=== PATIENT | female | born 1965 | race Caucasian/White ===

== ENCOUNTER 2017-11-04 19:02 | Inpatient (IN) ==
[2017-11-04] MEDS ORDERED: ONDANSETRON 4 MG/2 ML VIAL IV ONE (19:31)
[2017-11-04] MEDS ORDERED: 0.9 % SODIUM CHLORIDE 1,000 ML IV ONE ×2 (19:31→21:39)
[2017-11-04] MEDS ORDERED: HYDROmorphone 2 MG/ML VIAL IV PRN (19:31)
[2017-11-04] MEDS ORDERED: CIPROFLOXACIN 400 MG/200 ML BAG IV ONE (19:37)
--- NOTE | 2017-11-04 20:24 | Emergency Department Note ---
Abdominal Pain HPI - General Chief Complaint: Abdominal Pain Stated Complaint: abd. pain left lower Time Seen by Provider: 11/04/17 19:17 Source: patient Mode of arrival: wheelchair Limitations: no limitations - History of Present Illness HPI Narrative: 10-year-old female with belly pain for the last 3-4 days radiating from her umbilicus down to her left lower quadrant. She was seen at the [facility] clinic with a noted she had elevated white blood cells in her lab but they did not put her on antibiotic. No history of diverticulosis or diverticulitis per patient but she does note a low-grade temperature elevation which indeed here is 99.8. Is having nausea a little bit of vomiting and some diarrhea. She denies hematemesis melena her hematochezia. She is on Coumadin for PE in the past - Related Data Home Medications Medication Instructions Recorded Confirmed Folic Acid 2 mg PO DAILY 04/07/15 11/04/17 Ipratropium/Albuterol [Duoneb] 3 ml NEB Q4HP PRN 04/07/15 11/04/17 Omeprazole [Prilosec] 20 mg PO BIDAC 04/07/15 11/04/17 Potassium Chloride [Klor-Con M20] 20 meq PO TID 04/07/15 11/04/17 busPIRone [Buspar] 20 mg PO TID 04/07/15 11/04/17 metFORMIN [Glucophage] 1,000 mg PO BIDAC 04/07/15 11/04/17 Albuterol Sulfate [Ventolin] 2 puff INH Q4HP PRN 08/05/16 11/04/17 Aripiprazole [Abilify] 10 mg PO DAILY 08/05/16 11/04/17 Isosorbide Mononitrate [Isosorbide 60 mg PO DAILY 08/05/16 11/04/17 Mononitrate ER] Spironolactone [Aldactone] 25 mg PO DAILY 08/05/16 11/04/17 HYDROcodone/APAP 10/325MG [Trosper 1 tab PO Q4H PRN 03/06/17 11/04/17 10/325Mg] alendronate 70 mg tablet 70 mg PO QWEEK PRN 10/11/17 11/04/17 clonazepam 0.5 mg disintegrating 0.5 mg PO TID tab 10/11/17 11/04/17 tablet furosemide 40 mg tablet 20 mg PO DAILY tab 10/11/17 11/04/17 gabapentin 300 mg capsule 300 mg PO QID cap 10/11/17 11/04/17 mirtazapine 30 mg tablet 30 mg PO QHS 10/11/17 11/04/17 montelukast 10 mg tablet 10 mg PO QHS 10/11/17 11/04/17 oxcarbazepine 300 mg tablet 600 mg PO BID 10/11/17 11/04/17 oxybutynin chloride ER 10 mg 10 mg PO QDAY 10/11/17 11/04/17 tablet,extended release 24 hr polysaccharide iron complex 150 mg 150 mg PO BID cap 10/11/17 11/04/17 iron capsule sertraline 50 mg tablet 100 mg PO DAILY tab 10/11/17 11/04/17 warfarin 5 mg tablet 12.5 mg PO QDAY tab 10/11/17 11/04/17 Allergies Allergy/AdvReac Type Severity Reaction Status Date / Time iodine Allergy Severe Anaphylaxis Verified 11/04/17 20:07 methocarbamol Allergy Severe Anaphylaxis Verified 11/04/17 20:07 Penicillins Allergy Severe Anaphylaxis Verified 11/04/17 20:07 Amoxicillin Allergy Unknown Unknown Verified 11/04/17 20:07 atropine Allergy Unknown Unknown Verified 11/04/17 20:07 ceftriaxone [From Rocephin] Allergy Unknown Unknown Verified 11/04/17 20:07 lamotrigine Allergy Unknown Unknown Verified 11/04/17 20:07 morphine Allergy Unknown Unknown Verified 11/04/17 20:07 sulfacetamide Allergy Unknown Unknown Verified 11/04/17 20:07 sulfamethoxazole Allergy Unknown Unknown Verified 11/04/17 20:07 [From Bactrim] trimethoprim [From Bactrim] Allergy Unknown Unknown Verified 11/04/17 20:07 vitamin K2 Allergy Anaphylaxis Verified 11/04/17 20:07 menaquinone 7 Allergy Unknown Unknown Uncoded 10/11/17 08:09 vitamin K Allergy Unknown Unknown Uncoded 10/11/17 08:09 tape AdvReac Unknown Unknown Uncoded 10/11/17 08:09 Review of Systems All systems ED: reviewed and negative except as stated. Abdominal Pain PMH - Past Medical History Attestation: Yes: The following information was validated with the patient. Medical history: Reports: cancer (Renal cell carcinoma, melanoma, ovarian), CHF , COPD, DVT, DM, fibromyalgia, hyperlipidemia, kidney stones, migraine, osteoporosis, pulmonary embolus, other (GCA, pancreatitis, peripheral vascular disease) Surgical history ED: Reports: cholecystectomy, hysterectomy (With oophorectomy) , lumpectomy, orthopedic, other (Shoulder, lumbar, foot), other ([id number] amputation for osteomyelitis at left leg, partial nephrectomy) Psychiatric history: Reports: anxiety, bipolar, depression [employer]ER history: Reports: non-contributory Family history: Reports: no significant family history - Social History Smoking status: Former smoker Alcohol use: Reports: None Drug use: Reports: opiates Physical Exam Overweight female no acute distress. Normocephalic atraumatic. Conjunctive are clear sclerae nonicteric. No nasal discharge or congestion. Oropharynx pink and moist. Neck is supple without lymphadenopathy or thyromegaly. Heart is regular rate and rhythm no murmur appreciated. Lungs are clear to auscultation bilaterally without wheezes rales rhonchi or respiratory distress. Abdomen is soft mildly tender especially left lower quadrant but also periumbilical. She does have a small area of bruising inferior to the umbilicus but she is on Coumadin. No pedal edema on the right but she does have a [id number] amputation on the left. +2 radial pulse. Alert oriented able answer questions appropriately. Limitations: no limitations Course Vital Signs Temperature 98.1 F 11/04/17 19:03 Pulse Rate 96 H 11/04/17 19:03 Respiratory Rate 20 11/04/17 19:03 Blood Pressure 123/63 11/04/17 19:03 Pulse Oximetry (%) 92 11/04/17 19:03 Temperature 99.8 F H 11/04/17 19:24 Pulse Rate 87 11/04/17 21:00 Respiratory Rate 20 11/04/17 19:03 Blood Pressure 119/65 11/04/17 20:31 Pulse Oximetry (%) 91 11/04/17 21:00 Abdominal Pain - Lab Data Lab results reviewed: Yes I reviewed the patient's lab results. Result diagrams: 11/04/17 19:50 11/04/17 19:50 Lab Results 11/04/17 11/04/17 11/04/17 Range/Units 19:50 19:50 19:50 WBC 9.3 (4.5-11.0) K/mcL RBC 4.51 (4.00-5.20) M/mcL Hgb 7.3 L (12.0-15.0) g/dL Hct 26.1 L (36.0-48.0) % POC Hct 26.0 L (36.0-48.0) % MCV 57.8 L (80.0-100.0) fL MCH 16.1 L (26.0-34.0) pg MCHC 27.9 L (31.0-36.0) g/dL RDW 24.5 H (11.5-14.5) % Plt Count 239 (140-440) K/mcL MPV 8.6 (7.4-10.4) fL Gran % 65.2 (38.0-78.0) % Lymph % (Auto) 23.2 (15.5-49.0) % [place] % (Auto) 7.5 (1.0-12.0) % Eos % (Auto) 3.7 (0.0-7.0) % Baso % (Auto) 0.4 (0.0-2.0) % Gran # 6.0 (1.8-8.0) K/mcL Lymph # (Auto) 2.1 (1.5-4.8) K/mcL [place] # (Auto) 0.7 (0.1-0.9) K/mcL Eos # (Auto) 0.3 (0.0-0.7) K/mcL Baso # (Auto) 0 (0.0-0.3) K/mcL PT 43.6 H (11.9-14.5) sec INR 4.4 H (0.9-1.1) VBG Lactic Acid (0.5-2.2) mmol/L POC Sodium 138 (133-145) mmol/L Sodium 137 (133-145) mmol/L POC Potassium 3.7 (3.3-5.1) mmol/L Potassium 3.7 (3.3-5.1) mmol/L POC Chloride 96 (96-108) mmol/L Chloride 95 L (96-108) mmol/L Carbon Dioxide 31 H (22-30) mmol/L POC Total CO2 31 H (22-30) mmol/L Anion Gap 11.0 (8-16) POC BUN 8 (6-20) mg/dl BUN 9 (6-20) mg/dl Creatinine 0.7 (0.6-1.1) mg/dl POC Creatinine 0.8 (0.6-1.1) mg/dl GFR Calculation 101 Glucose 84 (70-105) mg/dL POC Glucose 88 (70-105) mg/dL Calcium 8.2 L (8.6-10.4) mg/dl POC WB Ioniz Calcium 1.04 L (1.16-1.32) mmol/L Total Bilirubin 0.2 (0.0-1.0) mg/dL AST 26 (0-37) U/l ALT 28 (0-40) U/l Alkaline Phosphatase 53 (39-117) U/L Total Protein 6.5 (5.9-8.4) gm/dL Albumin 3.2 (3.2-5.2) gm/dL Globulin 3.3 (2.2-3.7) gm/dL Albumin/Globulin Ratio 1.0 (1.0-2.3) Amylase 80 (28-100) U/L Lipase 100 H (7-60) U/L 11/04/17 Range/Units 19:50 WBC (4.5-11.0) K/mcL RBC (4.00-5.20) M/mcL Hgb (12.0-15.0) g/dL Hct (36.0-48.0) % POC Hct (36.0-48.0) % MCV (80.0-100.0) fL MCH (26.0-34.0) pg MCHC (31.0-36.0) g/dL RDW (11.5-14.5) % Plt Count (140-440) K/mcL MPV (7.4-10.4) fL Gran % (38.0-78.0) % Lymph % (Auto) (15.5-49.0) % [place] % (Auto) (1.0-12.0) % Eos % (Auto) (0.0-7.0) % Baso % (Auto) (0.0-2.0) % Gran # (1.8-8.0) K/mcL Lymph # (Auto) (1.5-4.8) K/mcL [place] # (Auto) (0.1-0.9) K/mcL Eos # (Auto) (0.0-0.7) K/mcL Baso # (Auto) (0.0-0.3) K/mcL PT (11.9-14.5) sec INR (0.9-1.1) VBG Lactic Acid 1.8 (0.5-2.2) mmol/L POC Sodium (133-145) mmol/L Sodium (133-145) mmol/L POC Potassium (3.3-5.1) mmol/L Potassium (3.3-5.1) mmol/L POC Chloride (96-108) mmol/L Chloride (96-108) mmol/L Carbon Dioxide (22-30) mmol/L POC Total CO2 (22-30) mmol/L Anion Gap (8-16) POC BUN (6-20) mg/dl BUN (6-20) mg/dl Creatinine (0.6-1.1) mg/dl POC Creatinine (0.6-1.1) mg/dl GFR Calculation Glucose (70-105) mg/dL POC Glucose (70-105) mg/dL Calcium (8.6-10.4) mg/dl POC WB Ioniz Calcium (1.16-1.32) mmol/L Total Bilirubin (0.0-1.0) mg/dL AST (0-37) U/l ALT (0-40) U/l Alkaline Phosphatase (39-117) U/L Total Protein (5.9-8.4) gm/dL Albumin (3.2-5.2) gm/dL Globulin (2.2-3.7) gm/dL Albumin/Globulin Ratio (1.0-2.3) Amylase (28-100) U/L Lipase (7-60) U/L Urinalysis care dipstick shows positive leukocytes negative nitrites specific gravity 1.005 - Radiology Data Radiology results reviewed: Yes I reviewed the patient's radiology results. CT scan of the abdomen and pelvis with contrast shows large hematoma 5 x 7 cm left lower quadrant rectus abdominis but otherwise no acute abnormality Disposition Pt seen by HOTEL REGISTRATION CLERK/PA only: No Clinical Impression: Supratherapeutic INR Rectus sheath hematoma Qualifiers: Encounter type: initial encounter Qualified Code(s): S30.1XXA - Contusion of abdominal wall, initial encounter UTI (urinary tract infection) Qualifiers: Urinary tract infection type: acute cystitis Hematuria presence: without hematuria Qualified Code(s): N30.00 - Acute cystitis without hematuria Pancreatitis Qualifiers: Chronicity: acute Pancreatitis type: unspecified pancreatitis type Acute pancreatitis complication: no infection or necrosis Qualified Code(s): K85.90 - Acute pancreatitis without necrosis or infection, unspecified Anemia Qualifiers: Anemia type: other cause Other causes of anemia: acute posthemorrhagic Qualified Code(s): D62 - Acute posthemorrhagic anemia Summary: After history and exam, treated with Dilaudid Zofran IV fluids working up. Lnczl-kf-[id number] dipstick shows likely UTI so started IV Cipro because of nausea and vomiting Laboratory shows anemia from blood loss and supratherapeutic INR. Transfusion orders for 3 units packed red blood cells as well as vitamin K orally. Also seen is low level elevation in lipase which could be acute mild pancreatitis as she has had in the past versus simply from her nausea and vomiting. Discussed case with Dr. Rachel Pereira who agreed to accept patient in transfer. Disposition: Home, Self-Care Condition: Fair Referrals: Tristen Dupree MD [Primary Care Provider] -
[2017-11-04 21:17] LABS: ALT/SGPT 28 U/l (0-40); Albumin 3.2 gm/dL (3.2-5.2); Alkaline Phosphatase 53 U/L (39-117); Amylase 80 U/L (28-100); Basophils # (Auto) 0 K/mcL (0.0-0.3); Basophils % (Auto) 0.4 % (0.0-2.0); Blood Urea Nitrogen 9 mg/dl (6-20); Eosinophils # (Auto) 0.3 K/mcL (0.0-0.7); Eosinophils % (Auto) 3.7 % (0.0-7.0); Granulocytes % (Auto) 65.2 % (38.0-78.0); Lipase 100 U/L (7-60); Lymphocytes # (Auto) 2.1 K/mcL (1.5-4.8); Lymphocytes % (Auto) 23.2 % (15.5-49.0); Mean Cell Volume 57.8 fL (80.0-100.0); Mean Corpuscular HGB Conc 27.9 g/dL (31.0-36.0); Mean Corpuscular Hemoglobin 16.1 pg (26.0-34.0); Monocytes # (Auto) 0.7 K/mcL (0.1-0.9); Monocytes % (Auto) 7.5 % (1.0-12.0); Platelet Count 239 K/mcL (140-440); RBC 4.51 M/mcL (4.00-5.20); Red Cell Distribution Width 24.5 % (11.5-14.5)
[2017-11-04] MEDS ORDERED: diphenhydrAMINE 50 MG/ML VIAL IV ONE (21:39)
[2017-11-04] MEDS ORDERED: ACETAMINOPHEN 325 MG TABLET PO ONE (21:39)
[2017-11-04] MEDS ORDERED: PHYTONADIONE 5 MG TABLET PO ONE (21:39)
[2017-11-04] MEDS ORDERED: 0.9 % SODIUM CHLORIDE 250 ML IV SCH (21:45)
--- NOTE | 2017-11-04 22:57 | Internal Med History&Physical ---
Medical - H&P: HPI Patient information: Note initiated : 11/04/17 at 10:49 pm Service Date, if different from initiated Date: [] Patient: Karyna Rand 52 y/o F admitted on for abd. pain left lower. Chief Complaint: Abdominal pain History of present illness: Is a 52-year-old female with extensive past medical history including history of upper extremity DVT associated with PICC line and subsequent PE about 2 years ago on chronic warfarin, type 2 diabetes mellitus treated with metformin, COPD, congestive heart failure, chronic pain who presents with left lower quadrant pain. Patient states the onset of pain was 4-5 days ago. Send the left lower abdominal area. All started when she went to get up after she had been coughing quite hard. It is progressively worsened over the last several days. Today she couldn't stand up because it was hurting so badly. She has Zalma 10/ 325 set home, those were not helping with the pain. The pain is constant, worse with some movements. It's unchanged with food. It's associated with nausea, she believes because of the intensity of pain. She has had no epigastric pain or tenderness. She's had no emesis or hematemesis. She has chronic loose stools from IBS, these are unchanged. There is no blood in her stool. She presents to the emergency department, evaluation was notable for CT showing a 5 x 6 cm left rectus sheath hematoma approximating the area of her pain. She also has acute on chronic anemia with hemoglobin dropping from the 10 range to 7.3. She is also on warfarin for her history of DVT/PE and her INR is elevated at 4.4. Subsequent evaluation revealed low-grade fever 99.8 and urinary tract infection. Patient's being hospitalized for reversal of coagulopathy, monitoring of her hemoglobin for any further evidence of bleeding and need for transfusion, and to begin treatment for urinary tract infection. Patient's felt feverish and chilled over the last few days. Highest temperature at home was 100.8. She has dyspnea which is chronic and has worsened recently, though has started to improve after her diuretics were increased. At baseline she does have chronic dyspnea from her COPD. She has chronic hypoxic/hypercapnic respiratory failure, is on 2 L nasal cannula at home and uses a trilogy device at night for respiratory support. She has occasional headache, recently had temporal artery biopsy which ruled out temporal arteritis. She has chronic lower extremity edema in the right leg ( status post above-knee amputation on the left) which is unchanged. The patient also has been complaining of some mild dysuria and pressure feeling following voiding for the last day or so. All systems: reviewed and no additional remarkable complaints except as stated Medical - H&P: PMH Medical history: COPD (chronic obstructive pulmonary disease) (Acute) Hypercarbia (Acute)-uses Trilogy at home Hypoxia (Acute) Fibromyalgia (Acute) Back pain (Acute) Recurrent major depression (Chronic) Pulmonary embolism (Chronic) secondary to UE DVT from PICC Hypercholesteremia (Chronic) History of renal cell carcinoma (Chronic)-s/p partial nephrectomy Tobacco abuse (Chronic) Peripheral vascular disease (Chronic) Peripheral neuropathy (Chronic) Gastroesophageal reflux (Chronic) Diabetes mellitus, type II (Chronic) Anxiety disorder (Chronic) Kidney stones (Acute) Giant cell arteritis (Ruled-out) Breast lump (Chronic) Fracture of femur (Chronic) Arthritis of hip (Chronic) Dislocation of shoulder joint (Chronic) Senile hyperkeratosis (Chronic) Intervertebral disc disorder (Chronic) Otitis externa (Chronic) Impingement syndrome of shoulder region (Chronic) Diverticulitis of colon (Chronic) Basal cell carcinoma of left upper arm (Chronic) Ventral incisional hernia (Chronic) Nuclear sclerotic cataract (Chronic) Breast cancer (Chronic) Closed femur fracture (Chronic) History of GI bleed (Acute) Costochondritis (Acute) Headache (Acute) Left otitis media (Acute) Rotator cuff tear (Acute) Surgical history: History of amputation (Chronic) History of arthroscopic surgery of shoulder (Chronic) History of back surgery (Chronic) History of broken leg (Chronic) History of cholecystectomy (Chronic) History of foot surgery (Chronic) History of lumpectomy (Chronic) History of nephrectomy (Chronic) History of oophorectomy (Chronic) History of partial hysterectomy (Chronic) Pertinent family history: Father Prostate cancer Mother Family history of coronary artery disease Grandmother Malignant tumor of breast Grandmother Malignant tumor of breast Other Diabetes mellitus, type II Renal cancer Social history: Smokes less than 1/2 PPD; does not drink alcohol Medical - H&P: Meds Home Medications Medication Instructions Recorded Confirmed Type Folic Acid 2 mg PO DAILY 04/07/15 11/04/17 History Ipratropium/Albuterol [Duoneb] 3 ml NEB Q4HP PRN 04/07/15 11/04/17 History Omeprazole [Prilosec] 20 mg PO BIDAC 04/07/15 11/04/17 History Potassium Chloride [Klor-Con M20] 20 meq PO TID 04/07/15 11/04/17 History busPIRone [Buspar] 20 mg PO TID 04/07/15 11/04/17 History metFORMIN [Glucophage] 1,000 mg PO BIDAC 04/07/15 11/04/17 History Albuterol Sulfate [Ventolin] 2 puff INH Q4HP PRN 08/05/16 11/04/17 History Aripiprazole [Abilify] 10 mg PO DAILY 08/05/16 11/04/17 History Isosorbide Mononitrate [Isosorbide 60 mg PO DAILY 08/05/16 11/04/17 History Mononitrate ER] Spironolactone [Aldactone] 25 mg PO DAILY 08/05/16 11/04/17 History HYDROcodone/APAP 10/325MG [Zalma 1 tab PO Q4H PRN 03/06/17 11/04/17 History 10/325Mg] alendronate 70 mg tablet 70 mg PO QWEEK PRN 10/11/17 11/04/17 History clonazepam 0.5 mg disintegrating 0.5 mg PO TID tab 10/11/17 11/04/17 History tablet furosemide 40 mg tablet 20 mg PO DAILY tab 10/11/17 11/04/17 History gabapentin 300 mg capsule 300 mg PO QID cap 10/11/17 11/04/17 History mirtazapine 30 mg tablet 30 mg PO QHS 10/11/17 11/04/17 History montelukast 10 mg tablet 10 mg PO QHS 10/11/17 11/04/17 History oxcarbazepine 300 mg tablet 600 mg PO BID 10/11/17 11/04/17 History oxybutynin chloride ER 10 mg 10 mg PO QDAY 10/11/17 11/04/17 History tablet,extended release 24 hr polysaccharide iron complex 150 mg 150 mg PO BID cap 10/11/17 11/04/17 History iron capsule sertraline 50 mg tablet 100 mg PO DAILY tab 10/11/17 11/04/17 History warfarin 5 mg tablet 12.5 mg PO QDAY tab 10/11/17 11/04/17 History Allergies Allergy/AdvReac Type Severity Reaction Status Date / Time iodine Allergy Severe Anaphylaxis Verified 11/04/17 20:07 methocarbamol Allergy Severe Anaphylaxis Verified 11/04/17 20:07 Penicillins Allergy Severe Anaphylaxis Verified 11/04/17 20:07 Amoxicillin Allergy Unknown Unknown Verified 11/04/17 20:07 atropine Allergy Unknown Unknown Verified 11/04/17 20:07 ceftriaxone [From Rocephin] Allergy Unknown Unknown Verified 11/04/17 20:07 lamotrigine Allergy Unknown Unknown Verified 11/04/17 20:07 morphine Allergy Unknown Unknown Verified 11/04/17 20:07 sulfacetamide Allergy Unknown Unknown Verified 11/04/17 20:07 sulfamethoxazole Allergy Unknown Unknown Verified 11/04/17 20:07 [From Bactrim] trimethoprim [From Bactrim] Allergy Unknown Unknown Verified 11/04/17 20:07 vitamin K2 Allergy Anaphylaxis Verified 11/04/17 20:07 menaquinone 7 Allergy Unknown Unknown Uncoded 10/11/17 08:09 vitamin K Allergy Unknown Unknown Uncoded 10/11/17 08:09 tape AdvReac Unknown Unknown Uncoded 10/11/17 08:09 Medical - H&P: Exam - Constitutional Vitals: Temp Pulse Resp BP Pulse Ox 99.8 F H 83 14 122/64 88 L 11/04/17 21:58 11/04/17 22:31 11/04/17 21:46 11/04/17 22:31 11/04/17 22:31 Exam: General: Morbid obesity, uncomfortable, sitting up in a [facility] HEENT: Normocephalic. Pupils are round and equal. Sclera are without icterus, conjunctiva are noninjected. Oropharynx is clear with moist mucous membranes. Neck: Supple, no thyromegaly appreciated. Chest: Few basilar crackles, scattered expiratory wheezes, respirations are unlabored Cardiovascular: Regular rate and rhythm with 1/6 systolic murmur at the upper right sternal border. There is 1+ right lower extremity edema. JVP cannot be assessed. Carotid pulses are 2+ without bruit. Abdomen: Obese, soft. In the left lower quadrant there is moderate tenderness to palpation, it is present with superficial palpation. There is no guarding or rebound. There is faint ecchymoses in the hypogastric region. Active bowel sounds. There is no epigastric tenderness to palpation. Skin: Warm, dry, normal skin turgor. Musculoskeletal: Status post left above-knee amputation. Stump intact without lesions. Otherwise joints in the upper and right lower extremity are with full range of motion. Strength is 5/5. No cyanosis or clubbing. Neuro: Alert, oriented 3, cranial nerves II through XII are grossly intact. Sensations intact to light touch. Patient displays normal mood, normal affect, good insight into her condition. Medical - H&P: Reslt - Labs CBC & Chem 7: 11/04/17 19:50 11/04/17 19:50 Labs: Short CBC 11/04/17 Range/Units 19:50 WBC 9.3 (4.5-11.0) K/mcL Hgb 7.3 L (12.0-15.0) g/dL Hct 26.1 L (36.0-48.0) % Plt Count 239 (140-440) K/mcL BMP 11/04/17 19:50 Sodium 137 Potassium 3.7 Chloride 95 L Carbon Dioxide 31 H BUN 9 Creatinine 0.7 Glucose 84 Calcium 8.2 L Liver Function 11/04/17 Range/Units 19:50 Total Bilirubin 0.2 (0.0-1.0) mg/dL AST 26 (0-37) U/l ALT 28 (0-40) U/l Alkaline Phosphatase 53 (39-117) U/L Albumin 3.2 (3.2-5.2) gm/dL - Imaging and Cardiology CT scan - abdomen Status: image reviewed by me Additional comments: Preliminary report: left rectus sheath hemorrhage, 5 x 6 cm hematoma Medical - H&P: A/P (1) Rectus sheath hematoma Current visit: Yes Status: Acute (2) Supratherapeutic INR Current visit: Yes Status: Acute (3) UTI (urinary tract infection) Current visit: Yes Status: Acute (4) Diabetes mellitus, type II Current visit: Yes Status: Chronic - Narrative A/P Narrative: 52-year-old female with multiple medical problems, on anticoagulation for PE about 2 years ago presents with left lower quadrant pain. Found to have rectus sheath hematoma. Rectus sheath hematoma. This is in the setting of coagulopathy from warfarin therapy with an INR 4.4. Suspect minor trauma lead II bleeding due to coagulopathy. She was coughing quite hard and could've had a minor muscle tear of the abdominal wall. She is not injected insulin or other medications into the abdomen. She was hospitalized at [facility] about 10 days ago, did not have any subcutaneous injections at that time either. Hematoma associated with blood loss anemia, hemoglobin down to 7.3. Plan: Hospitalized in observation FFP to reverse coagulopathy (she has anaphylaxis to vitamin K) Follow INR Trend hemoglobin and hematocrit, consider transfusion if falls below 7 Pain control. Coagulopathy secondary to warfarin and excess anticoagulation. Plan: Reverse with FFP as above. Urinary tract infection. Likely explains her low grade fevers. Plan: Continue with Cipro, follow up cultures Elevated lipase. Lipase is 100. She does not have epigastric pain, she has not had nausea and vomiting, she has not been intolerant of food. There does not appear to be any. Pancreatic inflammatory changes on CT. This is likely a nonspecific finding, low suspicion for pancreatitis. Plan: Monitor COPD with chronic hypoxic/hypercapnic respiratory failure. Uses Trilogy at home. Plan: Continue with DuoNeb's, CPAP or Trilogy at night. Type 2 diabetes mellitus. On metformin at home. Good glucose control by report. Plan: Hold metformin while acutely ill as may need contrast studies. Diabetic diet. Sliding scale insulin when necessary. Prophylaxis: SCDs, home PPI. Pharmacologic prophylaxis is contraindicated due to acute hemorrhage. CODE STATUS: Full code
[2017-11-04] MEDS ORDERED: HYDROcodone/APAP 10/325MG TABLET PO PRN (23:04)
[2017-11-04] MEDS ORDERED: ACETAMINOPHEN 325 MG TABLET PO PRN (23:04)
[2017-11-04] MEDS ORDERED: ONDANSETRON 4 MG/2 ML VIAL IV PRN (23:04)
[2017-11-04] MEDS ORDERED: CIPROFLOXACIN 400 MG/200 ML BAG IV SCH (23:04)
[2017-11-04] MEDS ORDERED: GABAPENTIN 300 MG CAPSULE ONE (23:20)
[2017-11-04] MEDS ORDERED: clonazePAM 1 MG TABLET ONE (23:21)
[2017-11-05] MEDS: 0.9 % SODIUM CHLORIDE 250 ML IV SCH ×2 (00:55→08:40)
[2017-11-05 07:01] LABS: Basophils # (Auto) 0 K/mcL (0.0-0.3); Basophils % (Auto) 0.4 % (0.0-2.0); Eosinophils # (Auto) 0.4 K/mcL (0.0-0.7); Granulocytes % (Auto) 60.1 % (38.0-78.0); Lymphocytes # (Auto) 1.8 K/mcL (1.5-4.8); Mean Cell Volume 58.9 fL (80.0-100.0); Mean Corpuscular HGB Conc 28.2 g/dL (31.0-36.0); Mean Corpuscular Hemoglobin 16.6 pg (26.0-34.0); Monocytes # (Auto) 0.5 K/mcL (0.1-0.9); Monocytes % (Auto) 7.5 % (1.0-12.0); Platelet Count 215 K/mcL (140-440); RBC 4.08 M/mcL (4.00-5.20); Red Cell Distribution Width 23.9 % (11.5-14.5)
[2017-11-05 07:07] LABS: Blood Urea Nitrogen 10 mg/dl (6-20)
[2017-11-05] MEDS: POTASSIUM CHLORIDE 20 MEQ TABLET PO SCH ×3 (07:32→17:14)
[2017-11-05] MEDS: busPIRone 5 MG TABLET PO SCH ×3 (07:33→23:11)
[2017-11-05] MEDS: OMEPRAZOLE 20 MG CAPSULE PO SCH ×2 (07:45→17:14)
[2017-11-05] MEDS: 0.9 % SODIUM CHLORIDE 10 ML SYRINGE IV SCH ×5 (07:46→23:13)
[2017-11-05] MEDS: SPIRONOLACTONE 25 MG TABLET PO SCH (07:57)
[2017-11-05] MEDS: OXYBUTYNIN CHLORIDE 5 MG TAB.XL.24H PO SCH (07:57)
[2017-11-05] MEDS: SERTRALINE 50 MG TABLET PO SCH (07:58)
[2017-11-05] MEDS: ISOSORBIDE MONONITRATE 60 MG TAB.XL.24H PO SCH (07:58)
[2017-11-05] MEDS: clonazePAM 0.5 MG TABLET PO SCH ×3 (07:58→23:14)
[2017-11-05] MEDS: GABAPENTIN 300 MG CAPSULE PO SCH ×4 (07:59→23:12)
[2017-11-05] MEDS: FOLIC ACID 1 MG TABLET PO SCH (07:59)
[2017-11-05] MEDS: FUROSEMIDE 20 MG TABLET PO SCH (07:59)
[2017-11-05] MEDS: HYDROcodone/APAP 10/325MG TABLET PO PRN ×4 (08:07→23:12)
[2017-11-05] MEDS ORDERED: 0.9 % SODIUM CHLORIDE 250 ML IV SCH (08:15)
[2017-11-05] MEDS: IPRATROPIUM/ALBUTEROL 3 ML AMPUL.NEB NEB PRN ×3 (08:25→19:29)
--- NOTE | 2017-11-05 09:14 | Cat Scan Report ---
CLINICAL INFORMATION: Reason for Exam:LLQ pain and bruising , patient is anticoagulated FINDINGS: The patient was imaged without oral or IV contrast from the diaphragm to the symphysis pubis. Sagittal and coronal reformats were created. There are several bands of scar tissue in both lung bases. These were present on a prior abdomen CT done on 02/26/16. No pleural effusion is present. Evaluation of abdominal organs without contrast is limited. There is air within the intrahepatic and extrahepatic bile ducts. Patient has had gallbladder removed. The air in the bile ducts is a chronic finding and may be related to prior papillotomy. The spleen and pancreas are normal in size and homogeneous. There is a defect in Gerota's fascia posterior to the right kidney following a prior tumor resection. The kidney is displaced, partially into the posterior abdominal wall musculature. This is probably due to scarring. The appearance of the kidney is unchanged since 11/09/16. There is no gross recurrent tumor in or adjacent to the right kidney. The left kidney is normal in size shape and contour. The bowel gas pattern is normal. Urinary bladder is decompressed. The uterus and ovaries are been removed. There is an acute intramuscular hematoma in the left rectus abdominis muscle in the mid pelvis. The hematoma measures 3.6 x 7.8 cm. No intrapelvic hematoma, mass or free fluid are present. There are postoperative changes following prior discectomy with interbody and posterior fusion at L4-5. IMPRESSION: Acute intramuscular hematoma in the left rectus abdominis muscle. This may be related to the anticoagulation Dr. Ledesma was called with results Interpreted and Authenticated by: Kuldip Hall 11/05/17
[2017-11-05] MEDS: ARIPIPRAZOLE 20 MG TABLET PO SCH (11:42)
[2017-11-05] MEDS: CIPROFLOXACIN 400 MG/200 ML BAG IV SCH (12:19)
[2017-11-05] MEDS: OXCARBAZEPINE 600 MG PO SCH ×2 (12:33→23:13)
--- NOTE | 2017-11-05 18:15 | Internal Med Progress Note ---
Medical - PN: Subj Patient information: Note initiated : 11/05/17 at 6:13 pm Service Date, if different from initiated Date: [] Patient: Karyna Rand 52 y/o F admitted on 11/04/17 for abd. pain left lower. Chief Complaint: f/u rectus m. 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 Patient states the onset of pain was 4-5 days ago. Send the left lower abdominal area. All started when she went to get up after she had been coughing quite hard. It is progressively worsened over the last several days. Today she couldn't stand up because it was hurting so badly. She has [place] 10/ 325 set home, those were not helping with the pain. The pain is constant, worse with some movements. It's unchanged with food. It's associated with nausea, she believes because of the intensity of pain. She has had no epigastric pain or tenderness. She's had no emesis or hematemesis. She has chronic loose stools from IBS, these are unchanged. There is no blood in her stool. She presents to the emergency department, evaluation was notable for CT showing a 5 x 6 cm left rectus sheath hematoma approximating the area of her pain. She also has acute on chronic anemia with hemoglobin dropping from the 10 range to 7.3. She is also on warfarin for her history of DVT/PE and her INR is elevated at 4.4. Subsequent evaluation revealed low-grade fever 99.8 and urinary tract infection. Patient's being hospitalized for reversal of coagulopathy, monitoring of her hemoglobin for any further evidence of bleeding and need for transfusion, and to begin treatment for urinary tract infection. 11/05-Patient still complaining of abdominal wall pain in the same region. Received 3 units FFP overnight, INR still 2.2. Hemoglobin down to 6.8, though she did receive significant IV fluids in the ED last evening. Has not been transfused 2 units of packed red blood cells, will receive further FFP. Otherwise breathing stable, no cough or sputum production, trace edema remains stable in the right lower extremity. - Constitutional Vitals: Vital Signs Temp Pulse Resp BP Pulse Ox 97.7 F 72 18 112/77 91 11/05/17 15:44 11/05/17 14:47 11/05/17 15:44 11/05/17 15:44 11/05/17 15:44 Period Temp Pulse Resp BP Sys/[place] Pulse Ox Last 24 Hr 96.9 F-99.8 F 72-96 14-24 106-133/51-77 88-94 Intake and Output 11/05/17 11/05/17 11/05/17 05:59 13:59 21:59 Intake Total 3021 / 3021 575 / 575 710 / 710 Output Total 600 / 600 250 / 250 Balance 3021 / 3021 -25 / -25 460 / 460 Weight 232 lb Intake & Output: Intake & Output 11/05/17 11/05/17 11/05/17 05:59 13:59 21:59 Intake Total 3021 / 3021 575 / 575 710 / 710 Output Total 600 / 600 250 / 250 Balance 3021 / 3021 -25 / -25 460 / 460 Weight 232 lb Intake: IV 1583 / 1583 355 / 355 Sodium Chloride 0.9% 1,000 ml @ 1583 / 1583 Wide Open IV .Q0M ONE Rx#: [id number] Sodium Chloride 0.9% 250 ml @ 155 / 155 20 mls/hr IV .[id number] [facility] Rx#: [id number] Oral 490 / 490 220 / 220 360 / 360 Blood Product 948 / 948 350 / 350 Output: Void Amount 600 / 600 250 / 250 Other: Meal Sand[place] Breakfast Dinner Percent of Meal Consumed 100% 95 90 Feeding Ability Independent Independent Assist with Tray Set Up # Voids 1 1 Exam: General: In no acute distress Chest: Clear, no rales Cardiovascular: Distant, regular, trace lower extremity edema in the right Abdomen: Obese, soft, nontender Muscular skeletal: No cyanosis or clubbing. Status post left AKA. Neuro: Alert, oriented, nonfocal Medical - PN: Obj Da - Labs CBC & Chem 7: 11/05/17 05:27 11/05/17 05:27 Labs: Abnormal Lab Results 11/05/17 11/05/17 11/05/17 05:27 05:27 05:27 Hgb 6.8 L* Hct 24.0 L POC Hct MCV 58.9 L MCH 16.6 L MCHC 28.2 L RDW 23.9 H PT 25.3 H INR 2.2 H Chloride Carbon Dioxide 33 H POC Total CO2 Glucose 109 H Calcium 8.1 L POC WB Ioniz Calcium Lipase 11/04/17 11/04/17 11/04/17 19:50 19:50 19:50 Hgb 7.3 L Hct 26.1 L POC Hct 26.0 L MCV 57.8 L MCH 16.1 L MCHC 27.9 L RDW 24.5 H PT 43.6 H INR 4.4 H Chloride 95 L Carbon Dioxide 31 H POC Total CO2 31 H Glucose Calcium 8.2 L POC WB Ioniz Calcium 1.04 L Lipase 100 H Microbiology 11/04/17 19:40 Urine Culture - Preliminary Urine - Clean Void Mid-Stream Gram negative bacillus Meds: Medications Acetaminophen (Tylenol) 650 mg PO Q6HP PRN PRN Reason: PAIN/FEVER > 101 Hydrocodone Bitart/Acetaminophen ([place] 10/325mg) 1 tab PO Q4HP PRN PRN Reason: Pain Last Admin: 11/05/17 13:47 Dose: 1 tab Albuterol/Ipratropium (Duoneb) 3 ml NEB Q4HP PRN PRN Reason: Shortness Of Breath Last Admin: 11/05/17 14:38 Dose: 3 ml Buspirone HCl (Buspar) [address] [facility] Last Admin: 11/05/17 14:25 Dose: 20 mg Clonazepam (Klonopin) 0.[address] [facility] Last Admin: 11/05/17 14:25 Dose: 0.5 mg Folic Acid (Folic Acid) [address] [facility] Last Admin: 11/05/17 07:59 Dose: 2 mg Furosemide (Lasix) [address] [facility] Last Admin: 11/05/17 07:59 Dose: 20 mg Gabapentin (Neurontin) [address] [facility] Last Admin: 11/05/17 17:14 Dose: 300 mg Ciprofloxacin (Cipro) 400 mg in 200 mls @ 200 mls/hr IV Q12H [facility] Last Infusion: 11/05/17 13:20 Dose: Infused Sodium Chloride (Sodium Chloride 0.9%) 250 mls @ 20 mls/hr IV .[id number] [facility] Stop: 11/05/17 20:44 Last Admin: 11/05/17 08:41 Dose: 20 mls/hr Isosorbide Mononitrate (Imdur) [address] [facility] Last Admin: 11/05/17 07:58 Dose: 60 mg Mirtazapine (Remeron) [address] [facility] Montelukast Sodium (Singular) [address] [facility] Morphine Sulfate (Morphine) 4 mg IV Q4HP PRN PRN Reason: PAIN LEVEL > 6 Last Admin: 11/05/17 15:48 Dose: 4 mg Omeprazole (Prilosec) [address] [facility] Last Admin: 11/05/17 17:14 Dose: 20 mg Ondansetron HCl (Zofran) 4 mg IV Q6HP PRN PRN Reason: Nausea And Vomiting Oxybutynin Chloride (Ditropan Xl) [address] [facility] Last Admin: 11/05/17 07:57 Dose: 10 mg Oxcarbazepine ( Trileptal) 600 Mg Tab [address] [facility] Last Admin: 11/05/17 12:33 Dose: Not Given Potassium Chloride (Kdur) [address] [facility] Last Admin: 11/05/17 17:14 Dose: 20 meq Sertraline HCl (Zoloft) [address] [facility] Last Admin: 11/05/17 07:58 Dose: 100 mg Sodium Chloride (Saline Flush) [address] [facility] Last Admin: 11/05/17 15:48 Dose: 10 ml Spironolactone (Aldactone) [address] [facility] Last Admin: 11/05/17 07:57 Dose: 25 mg - Imaging and cardiology CT scan - abdomen Additional comments: IMPRESSION: Acute intramuscular hematoma in the left rectus abdominis muscle. This may be related to the anticoagulation Medical - PN: A/P (1) Rectus sheath hematoma Status: Acute Current Visit: Yes (2) Supratherapeutic INR Status: Acute Current Visit: Yes (3) UTI (urinary tract infection) Status: Acute Current Visit: Yes (4) Diabetes mellitus, type II Status: Chronic Current Visit: Yes - Narrative A/P Narrative: 52-year-old female with multiple medical problems, on anticoagulation for PE about 2 years ago presents with left lower quadrant pain. Found to have rectus sheath hematoma. Rectus sheath hematoma. This is in the setting of INR of 4.4 at admission. Suspect minor trauma lead to bleeding due to coagulopathy. She was coughing hard and could've had a minor muscle tear of the abdominal wall. Hematoma associated with blood loss anemia, hemoglobin down to 7.3-->6.8, s/p 2units PRBC Monday. Plan: Inpatient status. Follow hemoglobin and hematocrit after transfusion. Three further units of FFP to more fully reverse INR (2.2 today); follow INR. Cont pain control. Coagulopathy secondary to warfarin and excess anticoagulation. Plan: Reverse with FFP as above. Urinary tract infection. Likely explains her low grade fevers. Plan: Continue with Cipro, follow up cultures; will change to PO, no longer nauseated. Elevated lipase. Lipase is 100. She does not have epigastric pain, she has not had nausea and vomiting, she has not been intolerant of food. There does not appear to be any. Pancreatic inflammatory changes on CT. This is likely a nonspecific finding, low suspicion for pancreatitis. Plan: Monitor COPD with chronic hypoxic/hypercapnic respiratory failure. Uses Trilogy at home. Plan: Continue with DuoNeb's, CPAP or Trilogy at night. Type 2 diabetes mellitus. On metformin at home. Good glucose control by report. Plan: Hold metformin while acutely ill as may need contrast studies. Diabetic diet. Sliding scale insulin when necessary. Prophylaxis: SCDs, home PPI. Pharmacologic prophylaxis is contraindicated due to acute hemorrhage. Medical - PN: Qual - VTE Deep Vein Thrombosis/Pulmonary Embolism Present on Admission: No
[2017-11-05] MEDS: MIRTAZAPINE 15 MG TABLET PO SCH (23:12)
[2017-11-05] MEDS: MONTELUKAST 10 MG TABLET PO SCH (23:13)
[2017-11-06] MEDS: CIPROFLOXACIN 400 MG/200 ML BAG IV SCH ×3 (00:11→20:24)
[2017-11-06] MEDS: 0.9 % SODIUM CHLORIDE 10 ML SYRINGE IV SCH ×3 (05:15→20:29)
[2017-11-06 05:45] LABS: Blood Urea Nitrogen 11 mg/dl (6-20)
[2017-11-06 06:29] LABS: Basophils # (Auto) 0 K/mcL (0.0-0.3); Basophils % (Auto) 0.1 % (0.0-2.0); Eosinophils # (Auto) 0.5 K/mcL (0.0-0.7); Eosinophils % (Auto) 6.7 % (0.0-7.0); Granulocytes % (Auto) 64.8 % (38.0-78.0); Lymphocytes # (Auto) 1.6 K/mcL (1.5-4.8); Lymphocytes % (Auto) 20.9 % (15.5-49.0); Mean Cell Volume 64.2 fL (80.0-100.0); Mean Corpuscular Hemoglobin 18.6 pg (26.0-34.0); Monocytes # (Auto) 0.6 K/mcL (0.1-0.9); Monocytes % (Auto) 7.5 % (1.0-12.0); Platelet Count 177 K/mcL (140-440); RBC 4.78 M/mcL (4.00-5.20); Red Cell Distribution Width 28.1 % (11.5-14.5)
[2017-11-06] MEDS: OMEPRAZOLE 20 MG CAPSULE PO SCH ×2 (07:05→16:40)
[2017-11-06] MEDS: POTASSIUM CHLORIDE 20 MEQ TABLET PO SCH ×3 (08:07→17:13)
[2017-11-06] MEDS: HYDROcodone/APAP 10/325MG TABLET PO PRN ×4 (08:08→20:24)
[2017-11-06] MEDS ORDERED: FLEETS ADULT ENEMA PR PRN (09:11)
[2017-11-06] MEDS ORDERED: BISACODYL 10 MG SUPP.RECT PR PRN (09:11)
[2017-11-06] MEDS ORDERED: FUROSEMIDE 40 MG/4 ML VIAL IV ONE (09:12)
[2017-11-06] MEDS: ISOSORBIDE MONONITRATE 60 MG TAB.XL.24H PO SCH (09:28)
[2017-11-06] MEDS: SPIRONOLACTONE 25 MG TABLET PO SCH (09:28)
[2017-11-06] MEDS: clonazePAM 0.5 MG TABLET PO SCH ×3 (09:28→20:23)
[2017-11-06] MEDS: busPIRone 5 MG TABLET PO SCH ×3 (09:29→20:24)
[2017-11-06] MEDS: GABAPENTIN 300 MG CAPSULE PO SCH ×4 (09:29→20:24)
[2017-11-06] MEDS: FOLIC ACID 1 MG TABLET PO SCH (09:29)
[2017-11-06] MEDS: SERTRALINE 50 MG TABLET PO SCH (09:29)
[2017-11-06] MEDS: OXYBUTYNIN CHLORIDE 5 MG TAB.XL.24H PO SCH (09:29)
[2017-11-06] MEDS: FUROSEMIDE 20 MG TABLET PO SCH (09:30)
[2017-11-06] MEDS: OXCARBAZEPINE 600 MG PO SCH ×2 (09:32→20:26)
[2017-11-06] MEDS: MAGNESIUM HYDROXIDE 30 ML ORAL.SUSP PO PRN (09:50)
[2017-11-06] MEDS: ARIPIPRAZOLE 20 MG TABLET PO SCH (09:51)
--- NOTE | 2017-11-06 10:40 | Internal Med Progress Note ---
Medical - PN: Subj Patient information: Note initiated : 11/06/17 at 10:32 am Service Date, if different from initiated Date: [] Patient: Karyna Rand 52 y/o F admitted on 11/05/17 for abd. pain left lower. 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 Patient states the onset of pain was 4-5 days ago. Send the left lower abdominal area. All started when she went to get up after she had been coughing quite hard. It is progressively worsened over the last several days. Today she couldn't stand up because it was hurting so badly. She has [place] 10/ 325 set home, those were not helping with the pain. The pain is constant, worse with some movements. It's unchanged with food. It's associated with nausea, she believes because of the intensity of pain. She has had no epigastric pain or tenderness. She's had no emesis or hematemesis. She has chronic loose stools from IBS, these are unchanged. There is no blood in her stool. She presents to the emergency department, evaluation was notable for CT showing a 5 x 6 cm left rectus sheath hematoma approximating the area of her pain. She also has acute on chronic anemia with hemoglobin dropping from the 10 range to 7.3. She is also on warfarin for her history of DVT/PE and her INR is elevated at 4.4. Subsequent evaluation revealed low-grade fever 99.8 and urinary tract infection. Patient's being hospitalized for reversal of coagulopathy, monitoring of her hemoglobin for any further evidence of bleeding and need for transfusion, and to begin treatment for urinary tract infection. 2/4-Patient still complaining of abdominal wall pain in the same region. Received 3 units FFP overnight, INR still 2.2. Hemoglobin down to 6.8, though she did receive significant IV fluids in the ED last evening. Has not been transfused 2 units of packed red blood cells, will receive further FFP. Otherwise breathing stable, no cough or sputum production, trace edema remains stable in the right lower extremity. 2/5-tolerated further FFP without problems. Complaining of constipation. Abdominal wall hurts when she tries to bear down. Still with significant abdominal wall pain, requesting pain medications frequently. Also complaining of some worsening lower extremity edema and puffy hands after her transfusions. We'll plan to diuresis, will decrease the interval for morphine. - Constitutional Vitals: Vital Signs Temp Pulse Resp BP Pulse Ox 98.3 F 79 12 109/63 90 11/06/17 06:17 11/06/17 07:16 11/06/17 07:16 11/06/17 06:17 11/06/17 07:16 Period Temp Pulse Resp BP Sys/[place] Pulse Ox Last 24 Hr 97.1 F-98.3 F 67-87 12-24 109-131/63-77 90-94 Intake and Output 11/05/17 11/06/17 11/06/17 21:59 05:59 13:59 Intake Total 1358 / 1358 730 / 730 0 / 0 Output Total 250 / 250 1150 / 1150 900 / 900 Balance 1108 / 1108 -420 / -420 -900 / -900 Weight 233 lb 8 oz Intake & Output: Intake & Output 11/05/17 11/06/17 11/06/17 21:59 05:59 13:59 Intake Total 1358 / 1358 730 / 730 0 / 0 Output Total 250 / 250 1150 / 1150 900 / 900 Balance 1108 / 1108 -420 / -420 -900 / -900 Weight 233 lb 8 oz Intake: IV 200 / 200 Oral 360 / 360 250 / 250 0 / 0 Blood Product 998 / 998 280 / 280 Output: Void Amount 250 / 250 1150 / 1150 900 / 900 Other: Meal Dinner Nourishment/Supplement Breakfast Percent of Meal Consumed 90 100% 0% Feeding Ability Assist with Tray Set Up Assist with Tray Set Up Independent # Voids 1 1 1 # Bowel Movements 1 Exam: General: Sitting up in bed, in no distress Chest: Diminished but clear throughout, no wheezes Cardiovascular: Regular, no murmur, 1+ right lower extremity edema Abdomen: Obese, soft, moderate tenderness over the left lower quadrant area at the site of the hematoma. Feeding midline faint ecchymoses in the hypogastrium. Musculoskeletal tenderness with palpation of the epigastrium ( pain with superficial pressure). Musculoskeletal: Nonpitting edema in the upper extremities, no cyanosis or clubbing Neuro: Alert, oriented Medical - PN: Obj Da - Labs CBC & Chem 7: 11/06/17 04:00 11/06/17 04:00 Labs: Abnormal Lab Results 11/06/17 11/06/17 11/06/17 04:00 04:00 04:00 Hgb 8.9 L Hct 30.7 L POC Hct MCV 64.2 L MCH 18.6 L MCHC 29.0 L RDW 28.1 H PT 17.0 H INR 1.3 H Chloride Carbon Dioxide 32 H POC Total CO2 Creatinine 0.5 L Glucose Calcium 8.2 L POC WB Ioniz Calcium Lipase 11/05/17 11/05/17 11/05/17 21:20 05:27 05:27 Hgb 8.2 L 6.8 L* Hct 28.1 L 24.0 L POC Hct MCV 58.9 L MCH 16.6 L MCHC 28.2 L RDW 23.9 H PT 25.3 H INR 2.2 H Chloride Carbon Dioxide POC Total CO2 Creatinine Glucose Calcium POC WB Ioniz Calcium Lipase 11/05/17 11/04/17 11/04/17 05:27 19:50 19:50 Hgb Hct POC Hct 26.0 L MCV MCH MCHC RDW PT 43.6 H INR 4.4 H Chloride 95 L Carbon Dioxide 33 H 31 H POC Total CO2 31 H Creatinine Glucose 109 H Calcium 8.1 L 8.2 L POC WB Ioniz Calcium 1.04 L Lipase 100 H 11/04/17 19:50 Hgb 7.3 L Hct 26.1 L POC Hct MCV 57.8 L MCH 16.1 L MCHC 27.9 L RDW 24.5 H PT INR Chloride Carbon Dioxide POC Total CO2 Creatinine Glucose Calcium POC WB Ioniz Calcium Lipase Microbiology 11/04/17 19:40 Urine Culture - Preliminary Urine - Clean Void Mid-Stream Gram negative bacillus Meds: Medications Acetaminophen (Tylenol) 650 mg PO Q6HP PRN PRN Reason: PAIN/FEVER > 101 Hydrocodone Bitart/Acetaminophen ([place] 10/325mg) 1 tab PO Q4HP PRN PRN Reason: Pain Last Admin: 11/06/17 08:08 Dose: 1 tab Albuterol/Ipratropium (Duoneb) 3 ml NEB Q4HP PRN PRN Reason: Shortness Of Breath Last Admin: 11/05/17 19:29 Dose: 3 ml Bisacodyl (Dulcolax) 10 mg CO Q2-3DAYS PRN PRN Reason: Constipation Buspirone HCl (Buspar) 20 mg PO TID [facility] Last Admin: 11/06/17 09:29 Dose: 20 mg Clonazepam (Klonopin) 0.5 mg PO TID [facility] Last Admin: 11/06/17 09:28 Dose: 0.5 mg Docusate Sodium (Colace) 100 mg PO BID [facility] Folic Acid (Folic Acid) 2 mg PO DAILY [facility] Last Admin: 11/06/17 09:29 Dose: 2 mg Furosemide (Lasix) 20 mg PO DAILY [facility] Last Admin: 11/06/17 09:30 Dose: 20 mg Gabapentin (Neurontin) 300 mg PO QID [facility] Last Admin: 11/06/17 09:29 Dose: 300 mg Ciprofloxacin (Cipro) 400 mg in 200 mls @ 200 mls/hr IV Q12H [facility] Last Admin: 11/06/17 09:50 Dose: 200 mls/hr Isosorbide Mononitrate (Imdur) 60 mg PO DAILY [facility] Last Admin: 11/06/17 09:28 Dose: 60 mg Magnesium Hydroxide (Milk Of Magnesia) 30 ml PO DAILYP PRN PRN Reason: Constipation Last Admin: 11/06/17 09:50 Dose: 30 ml Mirtazapine (Remeron) 30 mg PO HS [facility] Last Admin: 11/05/17 23:12 Dose: 30 mg Montelukast Sodium (Singular) 10 mg PO QHS [facility] Last Admin: 11/05/17 23:13 Dose: 10 mg Morphine Sulfate (Morphine) 4 mg IV Q3HP PRN PRN Reason: PAIN LEVEL > 6 Last Admin: 11/06/17 09:50 Dose: 4 mg Omeprazole (Prilosec) 20 mg PO BIDAC [facility] Last Admin: 11/06/17 07:05 Dose: 20 mg Ondansetron HCl (Zofran) 4 mg IV Q6HP PRN PRN Reason: Nausea And Vomiting Oxybutynin Chloride (Ditropan Xl) 10 mg PO DAILY [facility] Last Admin: 11/06/17 09:29 Dose: 10 mg Oxcarbazepine ( Trileptal) 600 Mg Tab 1 dose PO BID [facility] Last Admin: 11/06/17 09:32 Dose: Not Given Potassium Chloride (Kdur) 20 meq PO TIDCC [facility] Last Admin: 11/06/17 08:07 Dose: 20 meq Sertraline HCl (Zoloft) 100 mg PO DAILY [facility] Last Admin: 11/06/17 09:29 Dose: 100 mg Sodium Biphosphate/Sodium Phosphate (Fleets Adult) 1 dose CO Q3-4DAYS PRN PRN Reason: Constipation Sodium Chloride (Saline Flush) 10 ml IV Q8 [facility] Last Admin: 11/06/17 05:15 Dose: 10 ml Spironolactone (Aldactone) 25 mg PO DAILY [facility] Last Admin: 11/06/17 09:28 Dose: 25 mg Medical - PN: A/P - Time Spent With Patient Total time spent is greater than 50% in coordination of care (as documented) at patient's floor/unit and/or counseling patient: Greater than 35 minutes (1) Rectus sheath hematoma Status: Acute Current Visit: Yes (2) Supratherapeutic INR Status: Acute Current Visit: Yes (3) UTI (urinary tract infection) Status: Acute Current Visit: Yes (4) Diabetes mellitus, type II Status: Chronic Current Visit: Yes - Narrative A/P Narrative: 52-year-old female with multiple medical problems, on anticoagulation for PE about 2 years ago presents with left lower quadrant pain. Found to have rectus sheath hematoma. Rectus sheath hematoma. This is in the setting of INR of 4.4 at admission. Suspect minor trauma (coughing hard when occurred) lead to bleeding due to coagulopathy. Hematoma associated with blood loss anemia, hemoglobin down to 7.3-->6.8, s/p 2units PRBC Monday. We'll follow expectantly for evidence of further bleeding, symptom control. Plan: Inpatient status. Follow hemoglobin and hematocrit q8h to assure stable. INR now 1.3. Cont pain control. Coagulopathy secondary to warfarin and excess anticoagulation. She has a vitamin K allergy. Status post total 6 units FFP Plan: Daily INR Urinary tract infection. Likely explains her low grade fevers. Plan: Continue with Cipro, follow up cultures; will change to PO, no longer nauseated. History of congestive heart failure. Developing some worsening edema after packed cells and FFP. On oral Lasix at baseline. Plan: Single dose of IV furosemide today. Constipation. Bearing down is worsening pain symptoms and could cause some worsening bleeding. Plan: Bowel care Elevated lipase. Lipase is 100. She does not have epigastric pain, she has not had nausea and vomiting, she has not been intolerant of food. There does not appear to be any. Pancreatic inflammatory changes on CT. This is likely a nonspecific finding, low suspicion for pancreatitis. Plan: Monitor COPD with chronic hypoxic/hypercapnic respiratory failure. Uses Trilogy at home. Plan: Continue with DuoNeb's, CPAP or Trilogy at night. Type 2 diabetes mellitus. On metformin at home. Good glucose control by report. Plan: Hold metformin while acutely ill as may need contrast studies. Diabetic diet. Sliding scale insulin when necessary. Prophylaxis: SCDs, home PPI. Pharmacologic prophylaxis is contraindicated due to acute hemorrhage. Medical - PN: Qual - VTE Deep Vein Thrombosis/Pulmonary Embolism Present on Admission: No
[2017-11-06] MEDS: MIRTAZAPINE 15 MG TABLET PO SCH (20:23)
[2017-11-06] MEDS: MONTELUKAST 10 MG TABLET PO SCH (20:23)
[2017-11-06] MEDS: DOCUSATE SODIUM 100 MG CAPSULE PO SCH (20:24)
[2017-11-07] MEDS: HYDROcodone/APAP 10/325MG TABLET PO PRN ×4 (00:19→19:38)
[2017-11-07] MEDS: MAGNESIUM HYDROXIDE 30 ML ORAL.SUSP PO PRN (01:16)
[2017-11-07 05:43] LABS: Blood Urea Nitrogen 12 mg/dl (6-20)
[2017-11-07 05:51] LABS: Basophils # (Auto) 0 K/mcL (0.0-0.3); Basophils % (Auto) 0.2 % (0.0-2.0); Eosinophils # (Auto) 0.5 K/mcL (0.0-0.7); Eosinophils % (Auto) 3.1 % (0.0-7.0); Granulocytes % (Auto) 84.9 % (38.0-78.0); Lymphocytes # (Auto) 0.9 K/mcL (1.5-4.8); Lymphocytes % (Auto) 6.3 % (15.5-49.0); Mean Cell Volume 63.4 fL (80.0-100.0); Mean Corpuscular HGB Conc 29.8 g/dL (31.0-36.0); Mean Corpuscular Hemoglobin 18.9 pg (26.0-34.0); Monocytes # (Auto) 0.8 K/mcL (0.1-0.9); Monocytes % (Auto) 5.5 % (1.0-12.0); Platelet Count 217 K/mcL (140-440); RBC 4.88 M/mcL (4.00-5.20)
[2017-11-07] MEDS: 0.9 % SODIUM CHLORIDE 10 ML SYRINGE IV SCH ×3 (05:51→21:55)
[2017-11-07] MEDS: OXYBUTYNIN CHLORIDE 5 MG TAB.XL.24H PO SCH (09:03)
[2017-11-07] MEDS: busPIRone 5 MG TABLET PO SCH ×3 (09:04→21:55)
[2017-11-07] MEDS: POTASSIUM CHLORIDE 20 MEQ TABLET PO SCH ×3 (09:04→18:26)
[2017-11-07] MEDS: SERTRALINE 50 MG TABLET PO SCH (09:05)
[2017-11-07] MEDS: GABAPENTIN 300 MG CAPSULE PO SCH ×4 (09:05→21:54)
[2017-11-07] MEDS: DOCUSATE SODIUM 100 MG CAPSULE PO SCH ×2 (09:05→21:55)
[2017-11-07] MEDS: FOLIC ACID 1 MG TABLET PO SCH (09:06)
[2017-11-07] MEDS: ISOSORBIDE MONONITRATE 60 MG TAB.XL.24H PO SCH (09:07)
[2017-11-07] MEDS: SPIRONOLACTONE 25 MG TABLET PO SCH (09:07)
[2017-11-07] MEDS: FUROSEMIDE 20 MG TABLET PO SCH (09:07)
[2017-11-07] MEDS: clonazePAM 0.5 MG TABLET PO SCH ×3 (09:07→21:56)
[2017-11-07] MEDS: OMEPRAZOLE 20 MG CAPSULE PO SCH ×2 (09:07→18:26)
[2017-11-07] MEDS: ARIPIPRAZOLE 20 MG TABLET PO SCH (09:09)
[2017-11-07] MEDS: CIPROFLOXACIN 400 MG/200 ML BAG IV SCH (09:10)
--- NOTE | 2017-11-07 09:40 | XRay Report ---
CLINICAL INFORMATION: Elevated white blood cell count COMPARISON: 06/12/2017 FINDINGS: Heart size, mediastinum and pulmonary vessels are normal for technique. A prominent epicardial fat pad once the right costophrenic angle: This was also seen on CT from 10/07/2016. Mild scarring in the right midlung and both lung bases similar previous study. Potential developing infiltrate in the left base. No definite effusion IMPRESSION: Potential pneumonia developing in the left base. If there is strong clinical support for pneumonia, suggest two view upright chest x-ray in the next one to two days for reevaluation Interpreted and Authenticated by: Storm West 11/07/17
[2017-11-07] MEDS: KETOROLAC 15 MG/ML VIAL IV SCH ×3 (10:25→18:28)
[2017-11-07] MEDS: ACETAMINOPHEN 1,000 MG/100 ML BOTTLE IV SCH ×3 (11:17→21:57)
[2017-11-07] MEDS ORDERED: LEVOFLOXACIN 750 MG/150 ML BAG IV SCH (13:30)
--- NOTE | 2017-11-07 13:33 | Internal Med Progress Note ---
Medical - PN: Subj Patient information: Note initiated : 11/07/17 at 1:30 pm Service Date, if different from initiated Date: [] Patient: Karyna Rand 52 y/o F admitted on 11/05/17 for Abd Pain Left Lower/ Rectus Sheath Hematoma, UTI. 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 Patient states the onset of pain was 4-5 days ago. Send the left lower abdominal area. All started when she went to get up after she had been coughing quite hard. It is progressively worsened over the last several days. Today she couldn't stand up because it was hurting so badly. She has [place] 10/ 325 set home, those were not helping with the pain. The pain is constant, worse with some movements. It's unchanged with food. It's associated with nausea, she believes because of the intensity of pain. She has had no epigastric pain or tenderness. She's had no emesis or hematemesis. She has chronic loose stools from IBS, these are unchanged. There is no blood in her stool. She presents to the emergency department, evaluation was notable for CT showing a 5 x 6 cm left rectus sheath hematoma approximating the area of her pain. She also has acute on chronic anemia with hemoglobin dropping from the 10 range to 7.3. She is also on warfarin for her history of DVT/PE and her INR is elevated at 4.4. Subsequent evaluation revealed low-grade fever 99.8 and urinary tract infection. Patient's being hospitalized for reversal of coagulopathy, monitoring of her hemoglobin for any further evidence of bleeding and need for transfusion, and to begin treatment for urinary tract infection. 2/-Patient still complaining of abdominal wall pain in the same region. Received 3 units FFP overnight, INR still 2.2. Hemoglobin down to 6.8, though she did receive significant IV fluids in the ED last evening. Has not been transfused 2 units of packed red blood cells, will receive further FFP. Otherwise breathing stable, no cough or sputum production, trace edema remains stable in the right lower extremity. 2/-tolerated further FFP without problems. Complaining of constipation. Abdominal wall hurts when she tries to bear down. Still with significant abdominal wall pain, requesting pain medications frequently. Also complaining of some worsening lower extremity edema and puffy hands after her transfusions. We'll plan to diuresis, will decrease the interval for morphine. 2/6Pt see nexamined, no acute overnight issues still complaining of pain, high amounts of morphine use overnight, refusing oral meds, h/o substance abuse in the past. At this time, there is concern iwth regards to pt requesting IV pain meds so often, and declining oral meds. D/C IV opiates, oral opiates only for now. IV tylenol scheduled, IV toraldol scheduled for ajduvant pain management. USG guided aspiration of hematoma to see if we can decrease the pressure, local heat therapy pt has urine cx positive for klebsiellay on cipro, < x ray possible pna, wbc eleated today, get blood cx and start on levofloxa, procacitonin is 0.2 repeat Chest x ray in AM. Pertinent ROS: Denies headache, dizziness Denies chest pain, palpitations Denies cough or shortness of breath Present abdomen wall pain. - Constitutional Vitals: Vital Signs Temp Pulse Resp BP Pulse Ox 98.3 F 80 22 110/54 86 L 11/07/17 10:59 11/07/17 10:59 11/07/17 10:59 11/07/17 10:59 11/07/17 10:59 Period Temp Pulse Resp BP Sys/[place] Pulse Ox Last 24 Hr 98.3 F-99.9 F 70-98 18-22 110-145/54-80 86-96 Intake and Output 11/06/17 11/07/17 11/07/17 21:59 05:59 13:59 Intake Total 1640 / 1640 200 / 200 Output Total 3150 / 3150 800 / 800 500 / 500 Balance -1510 / -1510 -600 / -600 -500 / -500 Weight 233 lb 8 oz Intake & Output: Intake & Output 11/06/17 11/07/17 11/07/17 21:59 05:59 13:59 Intake Total 1640 / 1640 200 / 200 Output Total 3150 / 3150 800 / 800 500 / 500 Balance -1510 / -1510 -600 / -600 -500 / -500 Weight 233 lb 8 oz Intake: IV 200 / 200 Oral 1440 / 1440 200 / 200 Output: Void Amount 3150 / 3150 800 / 800 500 / 500 Other: Meal Dinner Percent of Meal Consumed 100% Feeding Ability Independent # Voids 3 1 # Bowel Movements 1 Exam: Constitutional; Afebrile, cooperative, alert, not in distress. Eyes- No icterus, , No periorbital swelling Ears- Ext ear normal, hearing normal to conversation. Neck- Midline trachea, supple Respiratory system: Air Entry equal on both sides, No crackles or wheezing, no rhonchi. CVS- Rate rhythm regular, S1,S2 heard, no gallop, no rub. Abdomen- pain on the epigastric, mid and left side of the abdomen on superficial palpation. obese abdomen. [employer]- AOOx3, moving all extremities, no gross focal deficit noted. Medical - PN: Obj Da - Labs CBC & Chem 7: 11/07/17 04:20 11/07/17 04:20 Labs: Abnormal Lab Results 11/07/17 11/07/17 11/07/17 04:20 04:20 04:20 WBC 15.0 H Hgb 9.2 L Hct 30.9 L POC Hct MCV 63.4 L MCH 18.9 L MCHC 29.8 L RDW 27.0 H Gran % 84.9 H Lymph % (Auto) 6.3 L Gran # 12.8 H Lymph # (Auto) 0.9 L PT 15.0 H INR 1.2 H Chloride 94 L Carbon Dioxide POC Total CO2 Creatinine Glucose 109 H Calcium 8.5 L POC WB Ioniz Calcium Lipase 11/06/17 11/06/17 11/06/17 22:00 14:50 04:00 WBC Hgb 9.2 L 9.3 L Hct 31.0 L 31.6 L POC Hct MCV MCH MCHC RDW Gran % Lymph % (Auto) Gran # Lymph # (Auto) PT INR Chloride Carbon Dioxide 32 H POC Total CO2 Creatinine 0.5 L Glucose Calcium 8.2 L POC WB Ioniz Calcium Lipase 11/06/17 11/06/17 11/05/17 04:00 04:00 21:20 WBC Hgb 8.9 L 8.2 L Hct 30.7 L 28.1 L POC Hct MCV 64.2 L MCH 18.6 L MCHC 29.0 L RDW 28.1 H Gran % Lymph % (Auto) Gran # Lymph # (Auto) PT 17.0 H INR 1.3 H Chloride Carbon Dioxide POC Total CO2 Creatinine Glucose Calcium POC WB Ioniz Calcium Lipase 11/05/17 11/05/17 11/05/17 05:27 05:27 05:27 WBC Hgb 6.8 L* Hct 24.0 L POC Hct MCV 58.9 L MCH 16.6 L MCHC 28.2 L RDW 23.9 H Gran % Lymph % (Auto) Gran # Lymph # (Auto) PT 25.3 H INR 2.2 H Chloride Carbon Dioxide 33 H POC Total CO2 Creatinine Glucose 109 H Calcium 8.1 L POC WB Ioniz Calcium Lipase 11/04/17 11/04/17 11/04/17 19:50 19:50 19:50 WBC Hgb 7.3 L Hct 26.1 L POC Hct 26.0 L MCV 57.8 L MCH 16.1 L MCHC 27.9 L RDW 24.5 H Gran % Lymph % (Auto) Gran # Lymph # (Auto) PT 43.6 H INR 4.4 H Chloride 95 L Carbon Dioxide 31 H POC Total CO2 31 H Creatinine Glucose Calcium 8.2 L POC WB Ioniz Calcium 1.04 L Lipase 100 H Meds: Medications Hydrocodone Bitart/Acetaminophen ([place] 10/325mg) 1 tab PO Q4HP PRN PRN Reason: Pain Last Admin: 11/07/17 09:07 Dose: 1 tab Albuterol/Ipratropium (Duoneb) 3 ml NEB Q4HP PRN PRN Reason: Shortness Of Breath Last Admin: 11/05/17 19:29 Dose: 3 ml Bisacodyl (Dulcolax) 10 mg ME Q2-3DAYS PRN PRN Reason: Constipation Last Admin: 11/06/17 22:58 Dose: 10 mg Buspirone HCl (Buspar) 20 mg PO TID [facility] Last Admin: 11/07/17 09:04 Dose: 20 mg Clonazepam (Klonopin) 0.5 mg PO TID [facility] Last Admin: 11/07/17 09:07 Dose: 0.5 mg Docusate Sodium (Colace) 100 mg PO BID [facility] Last Admin: 11/07/17 09:05 Dose: 100 mg Folic Acid (Folic Acid) 2 mg PO DAILY [facility] Last Admin: 11/07/17 09:06 Dose: 2 mg Furosemide (Lasix) 20 mg PO DAILY [facility] Last Admin: 11/07/17 09:07 Dose: 20 mg Gabapentin (Neurontin) 300 mg PO QID [facility] Last Admin: 11/07/17 09:05 Dose: 300 mg Ciprofloxacin (Cipro) 400 mg in 200 mls @ 200 mls/hr IV Q12H [facility] Last Admin: 11/07/17 09:10 Dose: 200 mls/hr Acetaminophen (Ofirmev) 1,000 mg in 100 mls @ 200 mls/hr IV Q8 [facility] Last Admin: 11/07/17 11:17 Dose: 200 mls/hr Levofloxacin (Levaquin) 750 mg in 150 mls @ 100 mls/hr IV Q24H [facility] Isosorbide Mononitrate (Imdur) 60 mg PO DAILY [facility] Last Admin: 11/07/17 09:07 Dose: 60 mg Ketorolac Tromethamine (Toradol) 15 mg IV Q6 [facility] Stop: 11/09/17 00:01 Last Admin: 11/07/17 10:25 Dose: 15 mg Magnesium Hydroxide (Milk Of Magnesia) 30 ml PO DAILYP PRN PRN Reason: Constipation Last Admin: 11/07/17 01:16 Dose: 30 ml Mirtazapine (Remeron) 30 mg PO HS [facility] Last Admin: 11/06/17 20:23 Dose: 30 mg Montelukast Sodium (Singular) 10 mg PO QHS [facility] Last Admin: 11/06/17 20:23 Dose: 10 mg Omeprazole (Prilosec) 20 mg PO BIDAC [facility] Last Admin: 11/07/17 09:07 Dose: 20 mg Ondansetron HCl (Zofran) 4 mg IV Q6HP PRN PRN Reason: Nausea And Vomiting Oxybutynin Chloride (Ditropan Xl) 10 mg PO DAILY [facility] Last Admin: 11/07/17 09:03 Dose: 10 mg Oxcarbazepine ( Trileptal) 600 Mg Tab 1 dose PO BID [facility] Last Admin: 11/06/17 20:26 Dose: Not Given Potassium Chloride (Kdur) 20 meq PO TIDCC [facility] Last Admin: 11/07/17 09:04 Dose: 20 meq Sertraline HCl (Zoloft) 100 mg PO DAILY [facility] Last Admin: 11/07/17 09:05 Dose: 100 mg Sodium Biphosphate/Sodium Phosphate (Fleets Adult) 1 dose ME Q3-4DAYS PRN PRN Reason: Constipation Sodium Chloride (Saline Flush) 10 ml IV Q8 [facility] Last Admin: 11/07/17 05:51 Dose: 10 ml Spironolactone (Aldactone) 25 mg PO DAILY [facility] Last Admin: 11/07/17 09:07 Dose: 25 mg Medical - PN: A/P - Time Spent With Patient Total time spent is greater than 50% in coordination of care (as documented) at patient's floor/unit and/or counseling patient: - Narrative A/P Narrative: 52-year-old female with multiple medical problems, on anticoagulation for PE about 2 years ago presents with left lower quadrant pain. Found to have rectus sheath hematoma. Rectus sheath hematoma. This is in the setting of INR of 4.4 at admission. Suspect minor trauma (coughing hard when occurred) lead to bleeding due to coagulopathy. Hematoma associated with blood loss anemia, hemoglobin down to 7.3-->6.8, s/p 2units PRBC Monday. We'll follow expectantly for evidence of further bleeding, symptom control. Plan: Inpatient status. h/h stable now, no further bleed Severe Pain: Duet ot rectus sheath hematoma, USG guided drainage for pain management.IV tylenol, toradol and po hydrocodone for now. Coagulopathy secondary to warfarin and excess anticoagulation. She has a vitamin K allergy. Status post total 6 units FFP Plan: Daily INR, I.2 today. HCAP pna: Likely, start on IV vancomycin, and IV aztreonam for now. (pt has allergies, extensive) Urinary tract infection. Likely explains her low grade fevers. Plan: plan to switch cipro to another antibiotic which will also cover pulmonary pathogen. (aztreonam) History of congestive heart failure. Developing some worsening edema after packed cells and FFP. On oral Lasix at baseline. Plan: Single dose of IV furosemide today. Constipation. Bearing down is worsening pain symptoms and could cause some worsening bleeding. Plan: Bowel care Elevated lipase. Lipase is 100. She does not have epigastric pain, she has not had nausea and vomiting, she has not been intolerant of food. There does not appear to be any. Pancreatic inflammatory changes on CT. This is likely a nonspecific finding, low suspicion for pancreatitis. Plan: Monitor COPD with chronic hypoxic/hypercapnic respiratory failure. Uses Trilogy at home. Plan: Continue with DuoNeb's, CPAP or Trilogy at night. Type 2 diabetes mellitus. On metformin at home. Good glucose control by report. Plan: Hold metformin while acutely ill as may need contrast studies. Diabetic diet. Sliding scale insulin when necessary. Prophylaxis: SCDs, home PPI. Pharmacologic prophylaxis is contraindicated due to acute hemorrhage. Medical - PN: Qual - VTE Deep Vein Thrombosis/Pulmonary Embolism Present on Admission: No
[2017-11-07] MEDS ORDERED: VANCOMYCIN PER PHARMACY IV SCH (13:40)
[2017-11-07] MEDS: AZTREONAM 2 GM VIAL IV SCH ×2 (15:45→21:56)
[2017-11-07] MEDS: VANCOMYCIN 1,500 MG in 0.9 % SODIUM CHLORIDE 500 ML IV SCH (16:38)
[2017-11-07] MEDS: OXCARBAZEPINE 600 MG PO SCH ×2 (16:46→22:29)
--- NOTE | 2017-11-07 17:35 | Ultrasound Report ---
CLINICAL INFORMATION: 8 cm hematoma in the left rectus abdominis muscle of the false pelvis region. COMPARISON: Abdomen and pelvic CT from 11/04/2017. TECHNIQUE: The procedure and risks including the possibility of bleeding and infection were explained to the patient. She understood and wished to proceed. The lesion was first ultrasound localized. The skin overlying the lesion marked, prepped and locally anesthetized with 1% lidocaine to the level of the hematoma capsule using a 25-gauge spinal needle. A 14-gauge Angiocath with side holes was placed under sonographic guidance into the hematoma. Approximately 20 cc of serosanguineous fluid was aspirated and retained. There was copious irrigation of normal saline to decrease this velocity. Post procedure scanning shows the cavity was reduced in volume by one half. Patient tolerated procedure well. IMPRESSION: Successful partial drainage of hematoma in the left rectus abdominis muscle. Unfortunately, it could not be completely evacuated due to high viscosity of the clotted blood. Saline irrigation was used for fragmentation and to decrease in satisfactory. The cavity was approximately one half the original volume on post procedure scanning.Hopefully, the hematoma level well now spontaneously resolved Interpreted and Authenticated by: Storm West 11/07/17
[2017-11-07] MEDS: MIRTAZAPINE 15 MG TABLET PO SCH (21:56)
[2017-11-07] MEDS: MONTELUKAST 10 MG TABLET PO SCH (21:56)
[2017-11-07 23:40] LABS: Appearance,Urine CLEAR; Bilirubin,Urine NEG (NEG); Color,Urine DK YELLOW; Glucose,Urine (UA) NORM (NEG); Leukocyte Esterase,Urine NEG /uL (NEG); PH,Urine 5.5 (5.0-9.0); Protein,Urine NEG (NEG); Specific Gravity,Urine 1.005 (1.000-1.035); Urine Blood NEG mg/dL (<0.03); Urobilinogen,Urine NORM (NEG)
[2017-11-08] MEDS: KETOROLAC 15 MG/ML VIAL IV SCH ×4 (00:01→17:53)
[2017-11-08] MEDS: VANCOMYCIN 1,500 MG in 0.9 % SODIUM CHLORIDE 500 ML IV SCH (00:07)
[2017-11-08 00:26] LABS: Bacteria,Urine 0 /hpf (0); Urine RBC 1 /hpf (0-1); Urine Squamous Epithelial Cell 0 /hpf (0-4); Urine Transitional Epi Cells < 1 /hpf (0-2); Urine WBC 3 /hpf (0-4)
[2017-11-08] MEDS: HYDROcodone/APAP 10/325MG TABLET PO PRN ×2 (03:16→09:05)
[2017-11-08] MEDS: AZTREONAM 2 GM VIAL IV SCH ×2 (05:59→14:11)
[2017-11-08] MEDS: 0.9 % SODIUM CHLORIDE 10 ML SYRINGE IV SCH ×2 (05:59→14:18)
[2017-11-08] MEDS: ACETAMINOPHEN 1,000 MG/100 ML BOTTLE IV SCH ×2 (05:59→14:10)
[2017-11-08 06:33] LABS: Basophils # (Auto) 0 K/mcL (0.0-0.3); Basophils % (Auto) 0.1 % (0.0-2.0); Eosinophils # (Auto) 0.5 K/mcL (0.0-0.7); Eosinophils % (Auto) 3.9 % (0.0-7.0); Granulocytes % (Auto) 80.8 % (38.0-78.0); Lymphocytes # (Auto) 1.3 K/mcL (1.5-4.8); Mean Cell Volume 65.1 fL (80.0-100.0); Mean Corpuscular HGB Conc 29.1 g/dL (31.0-36.0); Monocytes # (Auto) 0.7 K/mcL (0.1-0.9); Monocytes % (Auto) 5.2 % (1.0-12.0); Platelet Count 184 K/mcL (140-440); RBC 4.31 M/mcL (4.00-5.20); Red Cell Distribution Width 30.6 % (11.5-14.5)
[2017-11-08 06:54] LABS: Blood Urea Nitrogen 18 mg/dl (6-20)
[2017-11-08] MEDS: POTASSIUM CHLORIDE 20 MEQ TABLET PO SCH ×3 (07:05→17:13)
[2017-11-08] MEDS: OMEPRAZOLE 20 MG CAPSULE PO SCH ×2 (07:05→17:13)
[2017-11-08] MEDS ORDERED: HEPARIN 5,000 UNIT/ML VIAL SQ SCH (09:00)
[2017-11-08] MEDS: busPIRone 5 MG TABLET PO SCH ×2 (09:04→15:40)
[2017-11-08] MEDS: clonazePAM 0.5 MG TABLET PO SCH ×2 (09:05→15:40)
[2017-11-08] MEDS: FUROSEMIDE 20 MG TABLET PO SCH (09:05)
[2017-11-08] MEDS: FOLIC ACID 1 MG TABLET PO SCH (09:05)
[2017-11-08] MEDS: OXYBUTYNIN CHLORIDE 5 MG TAB.XL.24H PO SCH (09:05)
[2017-11-08] MEDS: ISOSORBIDE MONONITRATE 60 MG TAB.XL.24H PO SCH (09:05)
[2017-11-08] MEDS: DOCUSATE SODIUM 100 MG CAPSULE PO SCH (09:05)
[2017-11-08] MEDS: GABAPENTIN 400 MG CAPSULE PO SCH ×3 (09:06→17:13)
[2017-11-08] MEDS: OXCARBAZEPINE 600 MG PO SCH (09:06)
[2017-11-08] MEDS: ARIPIPRAZOLE 20 MG TABLET PO SCH (09:10)
[2017-11-08] MEDS: SERTRALINE 50 MG TABLET PO SCH (09:10)
[2017-11-08] MEDS: SPIRONOLACTONE 25 MG TABLET PO SCH (09:10)
--- NOTE | 2017-11-08 10:14 | XRay Report ---
CLINICAL INFORMATION: Follow pneumonia COMPARISON: 11/07/2017 FINDINGS: Heart size, mediastinum and pulmonary vessels are normal. Small patchy left lower lobe pneumonia shows slight progression. There is also a mild patchy infiltrate in the right lower lobe progressing. Prominent epicardial fat pad seen as before. Bones and soft tissues otherwise normal. IMPRESSION: Patchy infiltrates in both lower lobes progressing from yesterday's study Interpreted and Authenticated by: Storm West 11/08/17
--- NOTE | 2017-11-08 10:22 | Internal Med Progress Note ---
Medical - PN: Subj Patient information: Note initiated : 11/08/17 at 10:20 am Service Date, if different from initiated Date: [] Patient: Karyna Rand 52 y/o F admitted on 11/05/17 for Abd Pain Left Lower/ Rectus Sheath Hematoma, UTI. 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 Patient states the onset of pain was 4-5 days ago. Send the left lower abdominal area. All started when she went to get up after she had been coughing quite hard. It is progressively worsened over the last several days. Today she couldn't stand up because it was hurting so badly. She has [place] 10/ 325 set home, those were not helping with the pain. The pain is constant, worse with some movements. It's unchanged with food. It's associated with nausea, she believes because of the intensity of pain. She has had no epigastric pain or tenderness. She's had no emesis or hematemesis. She has chronic loose stools from IBS, these are unchanged. There is no blood in her stool. She presents to the emergency department, evaluation was notable for CT showing a 5 x 6 cm left rectus sheath hematoma approximating the area of her pain. She also has acute on chronic anemia with hemoglobin dropping from the 10 range to 7.3. She is also on warfarin for her history of DVT/PE and her INR is elevated at 4.4. Subsequent evaluation revealed low-grade fever 99.8 and urinary tract infection. Patient's being hospitalized for reversal of coagulopathy, monitoring of her hemoglobin for any further evidence of bleeding and need for transfusion, and to begin treatment for urinary tract infection. 2/-Patient still complaining of abdominal wall pain in the same region. Received 3 units FFP overnight, INR still 2.2. Hemoglobin down to 6.8, though she did receive significant IV fluids in the ED last evening. Has not been transfused 2 units of packed red blood cells, will receive further FFP. Otherwise breathing stable, no cough or sputum production, trace edema remains stable in the right lower extremity. 2/-tolerated further FFP without problems. Complaining of constipation. Abdominal wall hurts when she tries to bear down. Still with significant abdominal wall pain, requesting pain medications frequently. Also complaining of some worsening lower extremity edema and puffy hands after her transfusions. We'll plan to diuresis, will decrease the interval for morphine. 11/07Pt see nexamined, no acute overnight issues still complaining of pain, high amounts of morphine use overnight, refusing oral meds, h/o substance abuse in the past. At this time, there is concern iwth regards to pt requesting IV pain meds so often, and declining oral meds. D/C IV opiates, oral opiates only for now. IV tylenol scheduled, IV toraldol scheduled for ajduvant pain management. USG guided aspiration of hematoma to see if we can decrease the pressure, local heat therapy pt has urine cx positive for klebsiellay on cipro, < x ray possible pna, wbc eleated today, get blood cx and start on levofloxa, procacitonin is 0.2 repeat Chest x ray in AM. 11/08: Pt seen examined, sitting in wc quite comfortable, no acute pain reported, only has intermittent sharp abdominal pain, pat has usg guided decompression of hematoma yesterday. plan to resume hep sq and start coumadin Chest x ray shows pna, worse today than before, on IV antibiotics, vanco, aztreonam and flagyl (added today) to cover for hcap and possible aspiration pna. the patients list of allergies makes it difficult for proper selection of ABX she is still hypoxic intermittently , wbc trending down, Pertinent ROS: Denies headache, dizziness Denies chest pain, palpitations Denies cough or shortness of breath abdominal pain Much improved,, No nausea or vomiting. - Constitutional Vitals: Vital Signs Temp Pulse Resp BP Pulse Ox 98.3 F 80 12 132/84 92 11/08/17 07:01 11/08/17 07:33 11/08/17 07:33 11/08/17 07:01 11/08/17 07:33 Period Temp Pulse Resp BP Sys/[place] Pulse Ox Last 24 Hr 96.9 F-98.3 F 69-84 12-24 108-132/46-84 4-97 Intake and Output 11/07/17 11/08/17 11/08/17 21:59 05:59 13:59 Intake Total 600 / 600 1450 / 1450 100 / 100 Output Total 1500 / 1500 Balance 600 / 600 -50 / -50 100 / 100 Weight 235 lb 3.2 oz Intake & Output: Intake & Output 11/07/17 11/08/17 11/08/17 21:59 05:59 13:59 Intake Total 600 / 600 1450 / 1450 100 / 100 Output Total 1500 / 1500 Balance 600 / 600 -50 / -50 100 / 100 Weight 235 lb 3.2 oz Intake: IV 600 / 600 600 / 600 100 / 100 Vancomycin 1,500 mg In Sodium 500 / 500 500 / 500 Chloride 0.9% 500 ml @ 333.3 mls/hr IV Q12H [facility] Rx#: [id number] Oral 850 / 850 Output: Void Amount 1500 / 1500 Other: Meal Lunch Percent of Meal Consumed 100% Feeding Ability Independent Exam: Constitutional; Afebrile, cooperative, alert, not in distress. Eyes- No icterus, , No periorbital swelling Ears- Ext ear normal, hearing normal to conversation. Neck- Midline trachea, supple Respiratory system: Air Entry equal on both sides, No crackles or wheezing, no rhonchi. CVS- Rate rhythm regular, S1,S2 heard, no gallop, no rub. 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 Medical - PN: Obj Da - Labs CBC & Chem 7: 11/08/17 04:45 11/08/17 04:45 Labs: Abnormal Lab Results 11/08/17 11/08/17 11/07/17 04:45 04:45 13:57 WBC 12.8 H Hgb 8.2 L 8.7 L Hct 28.1 L 29.7 L MCV 65.1 L MCH 19.0 L MCHC 29.1 L RDW 30.6 H Gran % 80.8 H Lymph % (Auto) 10.0 L Gran # 10.3 H Lymph # (Auto) 1.3 L PT INR Chloride Carbon Dioxide Creatinine Glucose 130 H Calcium 11/07/17 11/07/17 11/07/17 04:20 04:20 04:20 WBC 15.0 H Hgb 9.2 L Hct 30.9 L MCV 63.4 L MCH 18.9 L MCHC 29.8 L RDW 27.0 H Gran % 84.9 H Lymph % (Auto) 6.3 L Gran # 12.8 H Lymph # (Auto) 0.9 L PT 15.0 H INR 1.2 H Chloride 94 L Carbon Dioxide Creatinine Glucose 109 H Calcium 8.5 L 11/06/17 11/06/17 11/06/17 22:00 14:50 04:00 WBC Hgb 9.2 L 9.3 L Hct 31.0 L 31.6 L MCV MCH MCHC RDW Gran % Lymph % (Auto) Gran # Lymph # (Auto) PT INR Chloride Carbon Dioxide 32 H Creatinine 0.5 L Glucose Calcium 8.2 L 11/06/17 11/06/17 11/05/17 04:00 04:00 21:20 WBC Hgb 8.9 L 8.2 L Hct 30.7 L 28.1 L MCV 64.2 L MCH 18.6 L MCHC 29.0 L RDW 28.1 H Gran % Lymph % (Auto) Gran # Lymph # (Auto) PT 17.0 H INR 1.3 H Chloride Carbon Dioxide Creatinine Glucose Calcium Meds: Medications Hydrocodone Bitart/Acetaminophen ([place] 10/325mg) 1 tab PO Q4HP PRN PRN Reason: Pain Last Admin: 11/08/17 09:05 Dose: 1 tab Albuterol/Ipratropium (Duoneb) 3 ml NEB Q4HP PRN PRN Reason: Shortness Of Breath Last Admin: 11/05/17 19:29 Dose: 3 ml Aztreonam (Azactam) 2 gm IV Q8H [facility] Last Admin: 11/08/17 05:59 Dose: 2 gm Bisacodyl (Dulcolax) 10 mg MN Q2-3DAYS PRN PRN Reason: Constipation Last Admin: 11/06/17 22:58 Dose: 10 mg Buspirone HCl (Buspar) 20 mg PO TID [facility] Last Admin: 11/08/17 09:04 Dose: 20 mg Clonazepam (Klonopin) 0.5 mg PO TID [facility] Last Admin: 11/08/17 09:05 Dose: 0.5 mg Docusate Sodium (Colace) 100 mg PO BID [facility] Last Admin: 11/08/17 09:05 Dose: 100 mg Folic Acid (Folic Acid) 2 mg PO DAILY [facility] Last Admin: 11/08/17 09:05 Dose: 2 mg Furosemide (Lasix) 20 mg PO DAILY [facility] Last Admin: 11/08/17 09:05 Dose: 20 mg Gabapentin (Neurontin) 400 mg PO QID [facility] Last Admin: 11/08/17 09:06 Dose: 400 mg Heparin Sodium (Porcine) (Heparin) 5,000 unit SQ Q12 [facility] Last Admin: 11/08/17 09:04 Dose: 5,000 unit Acetaminophen (Ofirmev) 1,000 mg in 100 mls @ 200 mls/hr IV Q8 [facility] Last Infusion: 11/08/17 06:29 Dose: Infused Isosorbide Mononitrate (Imdur) 60 mg PO DAILY [facility] Last Admin: 11/08/17 09:05 Dose: 60 mg Ketorolac Tromethamine (Toradol) 15 mg IV Q6 [facility] Stop: 11/09/17 00:01 Last Admin: 11/08/17 05:58 Dose: 15 mg Magnesium Hydroxide (Milk Of Magnesia) 30 ml PO DAILYP PRN PRN Reason: Constipation Last Admin: 11/07/17 01:16 Dose: 30 ml Mirtazapine (Remeron) 30 mg PO HS [facility] Last Admin: 11/07/17 21:56 Dose: 30 mg Montelukast Sodium (Singular) 10 mg PO QHS [facility] Last Admin: 11/07/17 21:56 Dose: 10 mg Omeprazole (Prilosec) 20 mg PO BIDAC [facility] Last Admin: 11/08/17 07:05 Dose: 20 mg Ondansetron HCl (Zofran) 4 mg IV Q6HP PRN PRN Reason: Nausea And Vomiting Oxybutynin Chloride (Ditropan Xl) 10 mg PO DAILY [facility] Last Admin: 11/08/17 09:05 Dose: 10 mg Oxcarbazepine ( Trileptal) 600 Mg Tab 1 dose PO BID [facility] Last Admin: 11/08/17 09:06 Dose: Not Given Potassium Chloride (Kdur) 20 meq PO TIDCC [facility] Last Admin: 11/08/17 07:05 Dose: 20 meq Sertraline HCl (Zoloft) 100 mg PO DAILY [facility] Last Admin: 11/08/17 09:10 Dose: 100 mg Sodium Biphosphate/Sodium Phosphate (Fleets Adult) 1 dose MN Q3-4DAYS PRN PRN Reason: Constipation Sodium Chloride (Saline Flush) 10 ml IV Q8 [facility] Last Admin: 11/08/17 05:59 Dose: 10 ml Spironolactone (Aldactone) 25 mg PO DAILY [facility] Last Admin: 11/08/17 09:10 Dose: 25 mg Vancomycin HCl (Vancomycin Per Pharmacy) 1 order IV UD [facility] Warfarin Sodium (Coumadin Per Pharmacy) 1 order PO UD [facility] Warfarin Sodium (Coumadin) 10 mg PO ONCE@1400 ONE Stop: 11/08/17 14:01 Medical - PN: A/P - Time Spent With Patient Total time spent is greater than 50% in coordination of care (as documented) at patient's floor/unit and/or counseling patient: - Narrative A/P Narrative: 52-year-old female with multiple medical problems, on anticoagulation for PE about 2 years ago presents with left lower quadrant pain. Found to have rectus sheath hematoma. Rectus sheath hematoma. This is in the setting of INR of 4.4 at admission. Suspect minor trauma (coughing hard when occurred) lead to bleeding due to coagulopathy. Hematoma associated with blood loss anemia, hemoglobin down to 7.3-->6.8, s/p 2units PRBC Monday. We'll follow expectantly for evidence of further bleeding, symptom control. Plan: Inpatient status. h/h stable now, no further bleed Severe Pain: Duet ot rectus sheath hematoma, USG guided drainage for pain management.IV tylenol, toradol and po hydrocodone for now. avoid IV narocotic, continue gabapentin, increase dose to 400mg qid (was on 300mg qid) Coagulopathy secondary to warfarin and excess anticoagulation. She has a vitamin K allergy. Status post total 6 units FFP Plan: Daily INR, I.2 today. resume oral vit K now. given stability of hb. h/o dvt and pe, pt insurance does not cover eliquis HCAP pna: Likely, on IV vancomycin, and IV aztreonam for now. (pt has allergies , extensive), started on flagyl today. as x ray shows slight worsening in consolidation, aspiration component? Urinary tract infection. Likely explains her low grade fevers. Plan: on aztreonam for PNA which should cover this. History of congestive heart failure. Developing some worsening edema after packed cells and FFP. On oral Lasix at baseline. Plan: on oral lasix continue same. no crackles on exam Constipation. Bearing down is worsening pain symptoms and could cause some worsening bleeding. Plan: Bowel care Elevated lipase. Lipase is 100. She does not have epigastric pain, she has not had nausea and vomiting, she has not been intolerant of food. There does not appear to be any. Pancreatic inflammatory changes on CT. This is likely a nonspecific finding, low suspicion for pancreatitis. Plan: Monitor COPD with chronic hypoxic/hypercapnic respiratory failure. Uses Trilogy at home. Plan: Continue with DuoNeb's, CPAP or Trilogy at night. Type 2 diabetes mellitus. On metformin at home. Good glucose control by report. Plan: Hold metformin while acutely ill as may need contrast studies. Diabetic diet. Sliding scale insulin when necessary. Prophylaxis: SCDs, home PPI. Pharmacologic prophylaxis is contraindicated due to acute hemorrhage. Medical - PN: Qual - VTE Deep Vein Thrombosis/Pulmonary Embolism Present on Admission: No
[2017-11-08] MEDS ORDERED: metroNIDAZOLE 500 MG/100 ML BAG IV SCH (11:00)
[2017-11-08] MEDS ORDERED: WARFARIN 5 MG TABLET PO ONE (14:00)
--- NOTE | 2017-11-08 18:48 | Event Note ---
called to inform that the patient wishes to leave, discussed with her need to stay, but she has to go to baby sit her grand kids, which was an urgent issue she understands the risk of leaving the hospital, including resp failure and , she has decision making capacity she will be signing out AMA I will send prescription for levoflox 750mg qd x 5 days to her pharmacy. she has been advised to come back to the hospital if symptoms worsen, shortness of breath fever or any othe acute symptoms. She will need to follow up with her PCP for INR management.
== END 2017-11-08 19:10 | disposition left against medical advice (07) | DRG 982 ==
LOC: ED 19:02 → ICU 19:02
PROVIDERS: ADMIT Internal Medicine; ATTEND Internal Medicine

== ENCOUNTER 2018-01-02 13:25 | Observation (INO) ==
[2018-01-02] MEDS ORDERED: ALBUTEROL SULFATE 5 MG/ML NEB SOLUTION BOTTLE NEB ONE (14:03)
[2018-01-02] MEDS ORDERED: methylPREDNISolone SOD SUCC 125 MG/2 ML VIAL IV ONE (14:03)
--- NOTE | 2018-01-02 14:07 | Emergency Department Note ---
SOB HPI - General Chief Complaint: Shortness of Breath/Dyspnea Stated Complaint: SOB 2 months Time Seen by Provider: 01/02/18 13:31 Source: patient Mode of arrival: wheelchair Limitations: no limitations - History of Present Illness 52-year-old female presents with worsening shortness of breath 2 months. She has been seen multiple times for this. She was seen on 25 December and diagnosed with worsening pneumonia is given more azithromycin and clindamycin. She also states she has diarrhea. She states it is a little bit worse than before. She states every time she goes to the bathroom she has bowel movement. She has some nausea as well. She states that when she is given prednisone she feels a little bit better for that time being. She was hospitalized 2 months ago and left AMA - Related Data Home Medications Medication Instructions Recorded Confirmed Folic Acid 2 mg PO DAILY 04/07/15 12/14/17 Ipratropium/Albuterol [Duoneb] 3 ml NEB Q4HP PRN 04/07/15 12/14/17 Omeprazole [Prilosec] 20 mg PO BIDAC 04/07/15 12/14/17 metFORMIN [Glucophage] 1,000 mg PO BIDAC 04/07/15 12/14/17 Isosorbide Mononitrate [Isosorbide 60 mg PO DAILY 08/05/16 12/14/17 Mononitrate ER] Spironolactone [Aldactone] 25 mg PO DAILY 08/05/16 12/14/17 clonazepam 0.5 mg disintegrating 0.5 mg PO TID tab 10/11/17 12/14/17 tablet furosemide 40 mg tablet 20 mg PO DAILY tab 10/11/17 12/14/17 gabapentin 300 mg capsule 300 mg PO QID cap 10/11/17 12/14/17 mirtazapine 30 mg tablet 30 mg PO QHS 10/11/17 12/14/17 montelukast 10 mg tablet 10 mg PO QHS 10/11/17 12/14/17 oxcarbazepine 300 mg tablet 600 mg PO BID 10/11/17 12/14/17 oxybutynin chloride ER 10 mg 10 mg PO QDAY 10/11/17 12/14/17 tablet,extended release 24 hr polysaccharide iron complex 150 mg 150 mg PO BID cap 10/11/17 12/14/17 iron capsule sertraline 50 mg tablet 100 mg PO DAILY tab 10/11/17 12/14/17 alendronate 70 mg tablet 70 mg PO QWEEK 12/13/17 12/14/17 apixaban 5 mg tablet 5 mg PO QDAY tab 12/13/17 12/14/17 aripiprazole 10 mg tablet 10 mg PO QHS tab 12/13/17 12/14/17 buspirone 10 mg tablet 30 mg PO BID tab 12/13/17 12/14/17 potassium chloride ER 20 mEq 20 meq PO QDAY tab 12/13/17 12/14/17 tablet,extended release(part/cryst) Previous Rx's Medication Instructions Recorded Ibuprofen 400 mg PO QIDP PRN #30 tab 11/18/17 Albuterol Sulfate [Ventolin] 2 puff INH Q4HP PRN #1 inhaler 11/27/17 Azithromycin [Zithromax] 0 mg PO DAILY #6 tab 12/25/17 Clindamycin HCl 300 mg PO Q6 #40 cap 12/25/17 Allergies Allergy/AdvReac Type Severity Reaction Status Date / Time iodine Allergy Severe Anaphylaxis Verified 01/02/18 13:30 methocarbamol Allergy Severe Anaphylaxis Verified 01/02/18 13:30 Penicillins Allergy Severe Anaphylaxis Verified 01/02/18 13:30 phytonadione (vitamin K1) Allergy Severe Anaphylaxis Verified 01/02/18 13:30 Cephalosporins Allergy Mild Rash Verified 01/02/18 13:30 lamotrigine Allergy Mild Rash Verified 01/02/18 13:30 atropine Allergy Unknown Unknown Verified 01/02/18 13:30 sulfacetamide Allergy Unknown Unknown Verified 01/02/18 13:30 clarithromycin [From Biaxin] Allergy Hives Verified 01/02/18 13:30 Quinolones AdvReac Mild Joint Pain Verified 01/02/18 13:30 adhesive tape AdvReac Unknown Unknown Verified 01/02/18 13:30 doxycycline Allergy Intermediate hives Uncoded 12/14/17 14:21 menaquinone 7 Allergy Unknown Unknown Uncoded 12/14/17 13:44 Review of Systems All systems ED: reviewed and negative except as stated. Past Medical History - Past Medical History Medical history: Reports: arthritis (hip.), cancer (Basal cell - L upper arm. Renal cell carcinoma. ), CHF, COPD, DVT, DM, fibromyalgia, hyperlipidemia, hypertension, kidney stones, migraine, obesity, osteoporosis, pulmonary embolus , other (Respiratory failure/hypoxia. Peripheral neuropathy. Fibromyalgia. Femur fracture. Pneumonia. Shoulder dislocation. Otitis externa. Diverticulitis. UTI's. Abdominal sheath hematoma. 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 Foot.), other (nephrectomy. Oophorectomy. ) - Social History smoking status: Former smoker Alcohol use: Reports: None Drug use: Reports: opiates Course Course Narrative: COPD exacerbation and pneumonia. She will be admitted. Vital Signs Temperature 97.8 F 01/02/18 13:27 Pulse Rate 108 H 01/02/18 13:27 Respiratory Rate 16 01/02/18 13:27 Blood Pressure 170/85 01/02/18 13:27 Pulse Oximetry (%) 84 L 01/02/18 13:27 Temperature 97.8 F 01/02/18 13:27 Pulse Rate 94 H 01/02/18 14:30 Respiratory Rate 24 H 01/02/18 14:30 Blood Pressure 170/85 01/02/18 13:27 Pulse Oximetry (%) 84 L 01/02/18 13:27 Shortness of Breath/Dyspnea - Lab Data Lab results reviewed: Yes I reviewed the patient's lab results. Result diagrams: 01/02/18 14:19 01/02/18 14:18 Lab Results 01/02/18 01/02/18 01/02/18 Range/Units 14:18 14:19 14:19 WBC 15.4 H (4.5-11.0) K/mcL RBC 5.60 H (4.00-5.20) M/mcL Hgb 11.1 L (12.0-15.0) g/dL Hct 37.4 (36.0-48.0) % MCV 66.7 L (80.0-100.0) fL MCH 19.9 L (26.0-34.0) pg MCHC 29.8 L (31.0-36.0) g/dL RDW 25.0 H (11.5-14.5) % Plt Count 194 (140-440) K/mcL MPV 8.6 (7.4-10.4) fL Total Counted 100 Seg Neutrophils % 83 H (38-78) % Band Neutrophils % Not Reportable Lymphocytes % 9 L (15-49) % Monocytes % (Manual) 6 (1-12) % Eosinophils % (Manual) 2 (0-7) % Platelet Estimate Normal (NORMAL) RBC Morphology Abnorm A (NORMAL) Hypochromasia 2+ A (NONE SEEN) Basophilic Stippling 1+ A (NONE SEEN) Anisocytosis 2+ A (NONE SEEN) Microcytosis 3+ A (NONE SEEN) VBG Lactic Acid 1.6 (0.5-2.2) mmol/L Sodium 139 (133-145) mmol/L Potassium 4.5 (3.3-5.1) mmol/L Chloride 93 L (96-108) mmol/L Carbon Dioxide 33 H (22-30) mmol/L Anion Gap 13.0 (8-16) BUN 12 (6-20) mg/dl Creatinine 0.7 (0.6-1.1) mg/dl GFR Calculation 101 Glucose 108 H (70-105) mg/dL Calcium 9.5 (8.6-10.4) mg/dl Total Bilirubin < 0.2 (0.0-1.0) mg/dL AST 15 (0-37) U/l ALT 16 (0-40) U/l Alkaline Phosphatase 67 (39-117) U/L Total Protein 7.3 (5.9-8.4) gm/dL Albumin 3.9 (3.2-5.2) gm/dL Globulin 3.4 (2.2-3.7) gm/dL Albumin/Globulin Ratio 1.1 (1.0-2.3) - Radiology Data Radiology results reviewed: Yes I reviewed the patient's radiology results. Small patchy regions of atelectasis or infiltrate developing in the right base Disposition Pt seen by PRODUCE DEPARTMENT SUPERVISOR/PA only: Yes Clinical Impression: COPD exacerbation Disposition: Xfer As Inpt ([facility]) Condition: Fair Referrals: Tristen Dupree MD [Primary Care Provider] -
[2018-01-02 14:50] LABS: Mean Cell Volume 66.7 fL (80.0-100.0); Mean Corpuscular HGB Conc 29.8 g/dL (31.0-36.0); Mean Corpuscular Hemoglobin 19.9 pg (26.0-34.0); Platelet Count 194 K/mcL (140-440)
--- NOTE | 2018-01-02 14:55 | XRay Report ---
CLINICAL INFORMATION: Dyspnea COMPARISON: 12/25/2017 FINDINGS: Heart size, mediastinum and pulmonary vessels are normal. Small patchy infiltrate or atelectasis developing in the right base. No definite effusions. IMPRESSION: Small patchy regions of atelectasis or infiltrate developing in the right base Interpreted and Authenticated by: Storm West 01/02/18
[2018-01-02 15:05] LABS: ALT/SGPT 16 U/l (0-40); Albumin 3.9 gm/dL (3.2-5.2); Albumin/Globulin Ratio 1.1 (1.0-2.3); Alkaline Phosphatase 67 U/L (39-117); Blood Urea Nitrogen 12 mg/dl (6-20)
[2018-01-02 15:33] LABS: Anisocytosis 2+ (NONE SEEN); Basophilic Stippling 1+ (NONE SEEN); Eosinophils % (Manual) 2 % (0-7); Hypochromasia 2+ (NONE SEEN); Lymphocytes % 9 % (15-49); Monocytes % (Manual) 6 % (1-12); Platelet Estimate NORMAL (NORMAL); RBC Morphology ABNORM (NORMAL); Segmented Neutrophils % 83 % (38-78)
[2018-01-02 18:11] LABS: Appearance,Urine CLEAR; Bacteria,Urine 0 /hpf (0); Bilirubin,Urine NEG (NEG); Color,Urine YELLOW; Glucose,Urine (UA) NEGATIVE (NEG); Leukocyte Esterase,Urine 75 /uL (NEG); Mucus,Urine FEW /hpf (0); Protein,Urine NEG (NEG); Specific Gravity,Urine 1.012 (1.000-1.035); Urine Blood NEG mg/dL (<0.03); Urine Hyaline Cast 1 /lpf (0-2); Urine RBC 1 /hpf (0-1); Urine Squamous Epithelial Cell 1 /hpf (0-4); Urine WBC 8 /hpf (0-4); Urobilinogen,Urine NEG (NEG)
[2018-01-02] MEDS ORDERED: ACETAMINOPHEN 325 MG TABLET PO PRN (18:53)
[2018-01-02] MEDS ORDERED: cefTRIAXone 2 GM in DEXTROSE 5% IN WATER 50 ML IV SCH (18:53)
[2018-01-02] MEDS ORDERED: ONDANSETRON 4 MG/2 ML VIAL IV PRN (18:53)
[2018-01-02] MEDS ORDERED: DEXTROSE 50% 50 ML VIAL IV PRN (18:53)
[2018-01-02] MEDS ORDERED: ALBUTEROL SULFATE 2.5 MG/3 ML NEBULIZER NEB PRN (18:53)
[2018-01-02] MEDS ORDERED: DEXTROSE 31 GM ORAL.SUSP PO PRN (18:53)
[2018-01-02] MEDS: IPRATROPIUM/ALBUTEROL 3 ML AMPUL.NEB NEB SCH (19:18)
[2018-01-02] MEDS: DOCUSATE SODIUM 100 MG CAPSULE PO SCH (19:48)
[2018-01-02] MEDS: INSULIN LISPRO 1 UNIT/0.01 ML UNIT SQ SCH (19:48)
[2018-01-02] MEDS: ERTAPENEM 1 GM in 0.9 % SODIUM CHLORIDE 50 ML IV SCH (19:48)
[2018-01-02] MEDS: 0.9 % SODIUM CHLORIDE 10 ML SYRINGE IV SCH (20:24)
--- NOTE | 2018-01-02 23:04 | Internal Med History&Physical ---
Medical - H&P: [facility] Patient information: Note initiated : 01/02/18 at 10:33 pm Service Date, if different from initiated Date: [] Patient: Karyna Rand a 52 y/o F admitted on 01/02/18 for SOB 2 months. Chief Complaint: [SOB and coughing] History of present illness: Ms. Rand is a 52 year old F, with severe COPD and chronic bronchitis, has been having recurrent exacerbations with coughing and worsening shortness of breath. She had just finished a prednisone taper and course of azithromycin and clindamycin. There is no fever or chills. Patient has also VIMAL and uses BiPAP 17/08 at night with supplemental oxygen ( sleepstudy 12/2016, BMI 39.8) ABG 01/07/17 on 3 L O2 showed pH 7.4, pCO2 70 pO2 57 (done in ED 12/2016) States that she has never been intubated and on mechanical ventilator. She has quit smoking. 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 ROS is significant for: chronic cough and SOB, severe GERD, dependent edema, weakness and daytime somnolence. Medical - H&P: H Medical history: Medical History (Last Reviewed 12/14/17 @ 14:16 by Shasta Carlin DO) Rectus sheath hematoma 11/2017 while on coumadin Bronchiectasis (Chronic) Overdose (Chronic) Respiratory failure with hypoxia and hypercapnia (Chronic) Candidiasis of mouth (Chronic) Diabetes mellitus (Chronic) Type 2 diabetes mellitus without complication (Chronic) Secondary peripheral neuropathy (Chronic) Fibromyalgia (Acute) Back pain (Acute) Myalgia (Acute) Giant cell arteritis (Ruled-out) Breast lump (Chronic) Pediculosis capitis (Chronic) Fracture of femur (Chronic) Arthritis of hip (Chronic) Furuncle of trunk (Chronic) Recurrent major depression (Chronic) Costal chondritis (Chronic) Pulmonary embolism (Chronic) Bacterial pneumonia (Chronic) Cellulitis of lower limb (Chronic) Acute exacerbation of chronic bronchitis (Chronic) Nausea (Chronic) Dislocation of shoulder joint (Chronic) Senile hyperkeratosis (Chronic) Intervertebral disc disorder (Chronic) Otitis externa (Chronic) Knee pain (Chronic) Impingement syndrome of shoulder region (Chronic) Acute sinusitis (Chronic) Chalazion (Chronic) Diverticulitis of colon (Chronic) Edema, lower extremity (Chronic) Melena (Chronic) Basal cell carcinoma of left upper arm (Chronic) Ventral incisional hernia (Chronic) Blepharitis (Chronic) Nuclear sclerotic cataract (Chronic) Hypercholesteremia (Chronic) Cancer of kidney (Chronic) Breast cancer (Chronic) History of skin cancer (Chronic) Temporal arteritis (Chronic) Tobacco abuse (Chronic) History of renal cell carcinoma (Chronic) Peripheral vascular disease (Chronic) Peripheral neuropathy (Chronic) Ovarian malignant neoplasm (Chronic) Neuropathy (Chronic) History of melanoma (Chronic) Hyperlipidemia (Chronic) Gastroesophageal reflux (Chronic) Closed femur fracture (Chronic) Diabetes mellitus, type II (Chronic) Anxiety disorder (Chronic) UTI (urinary tract infection) (Chronic) GI bleed (Chronic) Hypercarbia (Chronic) Hypoxia (Chronic) Interstitial pneumonia (Chronic) Head ache (Chronic) COPD (chronic obstructive pulmonary disease) with emphysema (Chronic) End stage management (Chronic) Migraine (Chronic) Knee injury (Chronic) Hematoma (Chronic) Kidney stones (Chronic) Left against medical advice (Chronic) Costochondritis (Chronic) Gastroenteritis (Chronic) Pneumonia (Chronic) Sprain of shoulder, left (Chronic) Left shoulder strain (Chronic) Headache (Chronic) Left otitis media (Chronic) Rotator cuff tear (Chronic) Abscess of skin or subcutaneous tissue (Chronic) Pneumonia (Chronic) Phlebitis after infusion (Chronic) Persistent cough (Chronic) Upper respiratory infection (Chronic) Anemia (Chronic) Dysphagia (Chronic) Surgical history: Past Surgical History (Last Reviewed 12/13/17 @ 15:23 by Lloyd Romero MD) History of amputation (Chronic) History of arthroscopic surgery of shoulder (Chronic) History of back surgery (Chronic) History of broken leg (Chronic) History of cholecystectomy (Chronic) History of foot surgery (Chronic) History of lumpectomy (Chronic) History of nephrectomy (Chronic) History of oophorectomy (Chronic) History of partial hysterectomy (Chronic) Functional capacity: wheelchair bound Smoking status: Former smoker (recently quit smoking) Have you smoked in the last 12 months: Yes Drug use: none Alcohol use: none Medical - H&P: Meds Home Medications Medication Instructions Recorded Confirmed Type Folic Acid 2 mg PO DAILY 04/07/15 12/14/17 History Ipratropium/Albuterol [Duoneb] 3 ml NEB Q4HP PRN 04/07/15 12/14/17 History Omeprazole [Prilosec] 20 mg PO BIDAC 04/07/15 12/14/17 History metFORMIN [Glucophage] 1,000 mg PO BIDAC 04/07/15 12/14/17 History Isosorbide Mononitrate [Isosorbide 60 mg PO DAILY 08/05/16 12/14/17 History Mononitrate ER] Spironolactone [Aldactone] 25 mg PO DAILY 08/05/16 12/14/17 History clonazepam 0.5 mg disintegrating 0.5 mg PO TID tab 10/11/17 12/14/17 History tablet furosemide 40 mg tablet 20 mg PO DAILY tab 10/11/17 12/14/17 History gabapentin 300 mg capsule 300 mg PO QID cap 10/11/17 12/14/17 History mirtazapine 30 mg tablet 30 mg PO QHS 10/11/17 12/14/17 History montelukast 10 mg tablet 10 mg PO QHS 10/11/17 12/14/17 History oxcarbazepine 300 mg tablet 600 mg PO BID 10/11/17 12/14/17 History oxybutynin chloride ER 10 mg 10 mg PO QDAY 10/11/17 12/14/17 History tablet,extended release 24 hr polysaccharide iron complex 150 mg 150 mg PO BID cap 10/11/17 12/14/17 History iron capsule sertraline 50 mg tablet 100 mg PO DAILY tab 10/11/17 12/14/17 History Ibuprofen 400 mg PO QIDP PRN #30 tab 11/18/17 12/14/17 Rx Albuterol Sulfate [Ventolin] 2 puff INH Q4HP PRN #1 inhaler 11/27/17 12/14/17 Rx alendronate 70 mg tablet 70 mg PO QWEEK 12/13/17 12/14/17 History apixaban 5 mg tablet 5 mg PO QDAY tab 12/13/17 12/14/17 History aripiprazole 10 mg tablet 10 mg PO QHS tab 12/13/17 12/14/17 History buspirone 10 mg tablet 30 mg PO BID tab 12/13/17 12/14/17 History potassium chloride ER 20 mEq 20 meq PO QDAY tab 12/13/17 12/14/17 History tablet,extended release(part/cryst) Azithromycin [Zithromax] 0 mg PO DAILY #6 tab 12/25/17 Rx Clindamycin HCl 300 mg PO Q6 #40 cap 12/25/17 Rx Allergies Allergy/AdvReac Type Severity Reaction Status Date / Time iodine Allergy Severe Anaphylaxis Verified 01/02/18 13:30 methocarbamol Allergy Severe Anaphylaxis Verified 01/02/18 13:30 Penicillins Allergy Severe Anaphylaxis Verified 01/02/18 13:30 phytonadione (vitamin K1) Allergy Severe Anaphylaxis Verified 01/02/18 13:30 atropine Allergy Mild Rash Verified 01/02/18 19:06 Cephalosporins Allergy Mild Rash Verified 01/02/18 13:30 lamotrigine Allergy Mild Rash Verified 01/02/18 13:30 sulfacetamide Allergy Mild Rash Verified 01/02/18 19:08 clarithromycin [From Biaxin] Allergy Hives Verified 01/02/18 13:30 adhesive tape AdvReac Mild Blister Verified 01/02/18 19:08 Quinolones AdvReac Mild Joint Pain Verified 01/02/18 13:30 doxycycline Allergy Intermediate hives Uncoded 12/14/17 14:21 menaquinone 7 Allergy Unknown Unknown Uncoded 12/14/17 13:44 Medical - H&P: Exam - Constitutional Vitals: Temp Pulse Resp BP Pulse Ox 97.8 F 80 22 170/85 92 01/02/18 19:11 01/02/18 19:30 01/02/18 19:30 01/02/18 19:11 01/02/18 19:30 General appearance: mild distress, morbidly obese - Head Additional comments: Cushingnoid appearance - Respiratory Respiratory exam: Present: decreased breath sounds, prolonged expiratory phase - Cardiovascular Cardiovascular exam: Present: irregular rhythm - GI/Abdominal GI/Abdominal exam: Present: normal bowel sounds, soft. Absent: guarding, mass - Extremities Exam Extremities exam: Present: pedal edema Additional comments: S/P L AKA Medical - H&P: Reslt - Labs CBC & Chem 7: 01/02/18 14:19 01/02/18 14:18 Labs: Short CBC 01/02/18 Range/Units 14:19 WBC 15.4 H (4.5-11.0) K/mcL Hgb 11.1 L (12.0-15.0) g/dL Hct 37.4 (36.0-48.0) % Plt Count 194 (140-440) K/mcL BMP 01/02/18 14:18 Sodium 139 Potassium 4.5 Chloride 93 L Carbon Dioxide 33 H BUN 12 Creatinine 0.7 Glucose 108 H Calcium 9.5 Liver Function 01/02/18 Range/Units 14:18 Total Bilirubin < 0.2 (0.0-1.0) mg/dL AST 15 (0-37) U/l ALT 16 (0-40) U/l Alkaline Phosphatase 67 (39-117) U/L Albumin 3.9 (3.2-5.2) gm/dL Urine 01/02/18 Range/Units 16:58 Urine Color Yellow Urine Appearance Clear Urine pH 5.0 (5.0-9.0) Ur Specific [place] 1.012 (1.000-1.035) Urine Protein Neg (NEG) mg/dL Urine Glucose (UA) Negative (NEG) mg/dL - Imaging and Cardiology Chest x-ray Additional comments: IMPRESSION: Small patchy regions of atelectasis or infiltrate developing in the right base Medical - H&P: A/P - Narrative A/P Narrative: 52-year-old female with c/o SOB and coughing admitted with following problems: - Acute on Chronic Respiratory Failure Worsening SOB despite recent course of antibiotics and prednisone taper - Hypercapnic Hypoxic respiratory insufficiency due to obesity hypoventilation syndrome and COPD FU by dr Linda Romero. On ANORO and Arnuity, Albuterol and Duonebs - VIMAL on BiPAP HS at 14/9 with supplemental oxygen (2L) Significant weight gain since polysomnography - GERD with severe reflux symptoms - Persistent vs recurrent R-sided pneumonia: ? silent aspiration WBC 15. Lactid acid wnl Start Ertapenem empirically (has many allergies) - Type 2 DM Continue home regimen - S/P L BKA due to fx and surgical complications - Fibromyalgia - Morbid Obesity resulting in many co-morbidities including VIMAL, hypoventilation syndrome, GERD, ongoing aspiration and COPD exacerbations. Unless significant weight loss achieved long lasting improvement in health status not likely. Not sure if patient would be a candidate for bariatric surgery. DVT prophylaxis: Lovenox Code status: FULL Medical - H&P: Qual - VTE Deep Vein Thrombosis/Pulmonary Embolism Present on Admission: No
[2018-01-03] MEDS ORDERED: IBUPROFEN 200 MG TABLET PO PRN (00:04)
[2018-01-03] MEDS: IPRATROPIUM/ALBUTEROL 3 ML AMPUL.NEB NEB SCH ×2 (01:41→07:46)
[2018-01-03 04:59] LABS: Mean Cell Volume 66.9 fL (80.0-100.0); Mean Corpuscular HGB Conc 29.4 g/dL (31.0-36.0); Mean Corpuscular Hemoglobin 19.6 pg (26.0-34.0); Platelet Count 190 K/mcL (140-440); RBC 5.56 M/mcL (4.00-5.20); Red Cell Distribution Width 24.5 % (11.5-14.5)
[2018-01-03 05:15] LABS: Estimated Average Glucose(eAG) 94 mg/dL; Hemoglobin A1C 4.9 % HGB (4.0-6.0)
[2018-01-03 05:51] LABS: ALT/SGPT 13 U/l (0-40); Albumin 3.9 gm/dL (3.2-5.2); Albumin/Globulin Ratio 1.2 (1.0-2.3); Alkaline Phosphatase 58 U/L (39-117); Bilirubin,Direct < 0.2 mg/dL (0.0-0.3); Blood Urea Nitrogen 19 mg/dl (6-20); Gamma Glutamyl Transpeptidase 24 U/L (5-36); Uric Acid 6.7 mg/dL (2.5-8.0)
[2018-01-03 06:13] LABS: Anisocytosis 2+ (NONE SEEN); Band Neutrophils % 4 % (0-10); Hypochromasia 2+ (NONE SEEN); Lymphocytes % 10 % (15-49); Monocytes % (Manual) 6 % (1-12); Platelet Estimate NORMAL (NORMAL); RBC Morphology ABNORMAL (NORMAL); Segmented Neutrophils % 80 % (38-78)
[2018-01-03] MEDS: 0.9 % SODIUM CHLORIDE 10 ML SYRINGE IV SCH ×2 (07:01→15:07)
[2018-01-03] MEDS ORDERED: PANTOPRAZOLE 40 MG TABLET PO SCH (07:30)
[2018-01-03] MEDS: INSULIN LISPRO 1 UNIT/0.01 ML UNIT SQ SCH ×2 (08:03→12:30)
[2018-01-03] MEDS: DOCUSATE SODIUM 100 MG CAPSULE PO SCH (08:18)
[2018-01-03] MEDS ORDERED: VILANTEROL INH SCH (09:00)
[2018-01-03] MEDS ORDERED: SERTRALINE 50 MG TABLET PO SCH (09:00)
[2018-01-03] MEDS ORDERED: OXYBUTYNIN CHLORIDE 5 MG TAB.XL.24H PO SCH (09:00)
[2018-01-03] MEDS ORDERED: ISOSORBIDE MONONITRATE 60 MG TAB.XL.24H PO SCH (09:00)
[2018-01-03] MEDS ORDERED: FUROSEMIDE 20 MG TABLET PO SCH (09:00)
[2018-01-03] MEDS ORDERED: busPIRone 15 MG TABLET PO SCH (09:00)
[2018-01-03] MEDS ORDERED: clonazePAM 0.5 MG TABLET PO SCH (09:00)
[2018-01-03] MEDS ORDERED: FOLIC ACID 1 MG TABLET PO SCH (09:00)
[2018-01-03] MEDS ORDERED: UMECLIDINIUM BROMIDE INH SCH (09:00)
[2018-01-03] MEDS ORDERED: FLUTICASONE FUROATE 200 MCG INH SCH (09:00)
[2018-01-03] MEDS ORDERED: ENOXAPARIN 40 MG/0.4 ML SYRINGE SQ SCH (09:00)
[2018-01-03] MEDS ORDERED: clonazePAM 0.5 MG TABLET PO PRN (10:15)
[2018-01-03] MEDS: HYDROcodone/APAP 10/325MG TABLET PO PRN ×2 (10:25→15:06)
[2018-01-03] MEDS: GABAPENTIN 300 MG CAPSULE PO SCH ×2 (10:26→15:06)
[2018-01-03] MEDS: metFORMIN 500 MG TABLET PO SCH ×2 (10:28)
--- NOTE | 2018-01-03 13:24 | Discharge Summary ---
Medical - DS: Prov Patient information: Note initiated : 01/03/18 at 1:18 pm Service Date, if different from initiated Date: [] Patient: Karyna Rand 52 y/o F admitted on 01/02/18 for SOB 2 months. Chief Complaint: [] Date of admission: 01/02/18 18:51 Discharge date: 01/03/18 Primary care physician: Tristen Dupree Consults: 01/02/18 19:12 Consult to Physician [CONS] Routine Comment: Consulting Provider: Daniela Roberts Reason For Exam: Physician to Consult Medical - DS: Meds - Discharge Medications Active and Home Medications: Home Medications Folic Acid 1 mg PO DAILY 04/07/15 [History Confirmed 01/03/18 Last Taken 09:00] Ipratropium/Albuterol [Duoneb] 3 ml NEB Q4HP PRN 04/07/15 [History Confirmed 12/17 Last Taken 01/02/18 12:00] Omeprazole [Prilosec] 20 mg PO BIDAC 04/07/15 [History Confirmed 01/02/18 Last Taken 01/02/18 09:00] Isosorbide Mononitrate [Isosorbide Mononitrate ER] 60 mg PO DAILY 08/05/16 [ History Confirmed 01/02/18 Last Taken 01/02/18 09:00] clonazepam 0.5 mg disintegrating tablet 0.5 mg PO BIDP PRN tab 10/11/17 [ History Confirmed 01/03/18 Last Taken 01/02/18 09:00] furosemide 40 mg tablet 20 mg PO DAILY tab 10/11/17 [History Confirmed Last Taken 01/02/18 09:00] gabapentin 300 mg capsule 900 mg PO TID cap 10/11/17 [History Confirmed Last Taken 01/02/18 12:00] mirtazapine 30 mg tablet 30 mg PO QHS 10/11/17 [History Confirmed 01/02/18 Last Taken 01/01/18 21:00] montelukast 10 mg tablet 10 mg PO QHS 10/11/17 [History Confirmed 01/02/18 Last Taken 01/01/18 21:00] oxcarbazepine 300 mg tablet 600 mg PO BID 10/11/17 [History Confirmed 01/02/18 Last Taken 01/01/18 21:00] oxybutynin chloride ER 10 mg tablet,extended release 24 hr 10 mg PO QDAY [History Confirmed 01/02/18 Last Taken 01/01/18 21:00] sertraline 50 mg tablet 200 mg PO DAILY tab 10/11/17 [History Confirmed Last Taken 01/02/18 09:00] Ibuprofen 400 mg PO QIDP PRN #30 tab 11/18/17 [Rx Confirmed 01/02/18 Last Taken Unknown] Albuterol Sulfate [Ventolin] 2 puff INH Q4HP PRN #1 inhaler 11/27/17 [Rx Confirmed 01/02/18 Last Taken 01/02/18 17:00] alendronate 70 mg tablet 70 mg PO MO@0730 12/13/17 [History Confirmed 01/03/18 Last Taken 01/01/18 09:00] apixaban 5 mg tablet 5 mg PO QDAY tab 12/13/17 [History Confirmed 01/02/18 Last Taken 01/01/18 21:00] aripiprazole 10 mg tablet 10 mg PO QHS tab 12/13/17 [History Confirmed Last Taken 01/01/18 21:00] buspirone 10 mg tablet 30 mg PO BID tab 12/13/17 [History Confirmed 01/02/18 Last Taken 01/02/18 09:00] potassium chloride ER 20 mEq tablet,extended release(part/cryst) 20 meq PO QAMCC tab 12/13/17 [History Confirmed 01/03/18 Last Taken 01/02/18 09:00] Fluticasone Furoate [Arnuity Ellipta] 200 mcg INH QAM 01/02/18 [History Confirmed 01/03/18 Last Taken 01/02/18 09:00] HYDROcodone/APAP 10/325MG [[place] 10-325Mg] 1 tab PO Q4-6HP PRN 01/02/18 [ History Confirmed 01/03/18 Last Taken 01/02/18 16:00] Anoro Ellipta 1 puff INH DAILY 01/03/18 [History Confirmed 01/03/18 Last Taken 01/02/18 09:00] Cetirizine [ZyrTEC] 10 mg PO DAILY 01/03/18 [History Confirmed 01/03/18 Last Taken Unknown] Clindamycin HCl 300 mg PO Q6H 01/03/18 [History Confirmed 01/03/18 Last Taken Unknown] Fluticasone Propionate [Flonase] 1 spray NS BID 01/03/18 [History Confirmed 01/17 Last Taken Unknown] Iron Polysaccharide Complex [Ferrex 150] 150 mg PO BID 01/03/18 [History Confirmed 01/03/18 Last Taken Unknown] Spironolactone [Aldactone] 25 mg PO DAILY 01/03/18 [History Confirmed 01/03/18 Last Taken Unknown] metFORMIN [Glucophage] 1,000 mg PO BIDCC 01/03/18 [History Confirmed 01/03/18 Last Taken 01/02/18 07:00] Medical - DS: Hosp Hospital course: Ms. Rand is a 52 year old F, with severe COPD and chronic bronchitis, has been having recurrent exacerbations with coughing and worsening shortness of breath. She had just finished a prednisone taper and course of azithromycin and clindamycin. There is no fever or chills. Patient has also VIMAL and uses BiPAP 17/08 at night with supplemental oxygen ( sleepstudy 12/2016, BMI 39.8) ABG 01/07/17 on 3 L O2 showed pH 7.4, pCO2 70 pO2 57 (done in ED 12/2016) States that she has never been intubated and on mechanical ventilator. She has quit smoking. 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 ROS is significant for: chronic cough and SOB, severe GERD, dependent edema, weakness and daytime somnolence. Admitted 01/02 with following problems: - Acute on Chronic Respiratory Failure Worsening SOB despite recent course of antibiotics and prednisone taper - Hypercapnic Hypoxic respiratory insufficiency due to obesity hypoventilation syndrome and COPD FU by dr Linda Romero. On ANORO and Arnuity, Albuterol and Duonebs - VIMAL on BiPAP HS at 15/06 with supplemental oxygen (2L) Significant weight gain since polysomnography - GERD with severe reflux symptoms - Persistent vs recurrent R-sided pneumonia: ? silent aspiration WBC 15. Lactid acid wnl Start Ertapenem empirically (has many allergies) - Type 2 DM Continue home regimen - S/P L BKA due to fx and surgical complications - Fibromyalgia - Morbid Obesity resulting in many co-morbidities including VIMAL, hypoventilation syndrome, GERD, ongoing aspiration and COPD exacerbations. Unless significant weight loss achieved long lasting improvement in health status not likely. Not sure if patient would be a candidate for bariatric surgery. 01/03: Patient was started empirically on Ertapenem IV for presumed pneumonia, likely exacerbation of COPD/acute bronchitis. She was comfortable on BiPAP and has not required steroids during her brief stay. However, she had received IV solumedrol 125 mg in ED the day before. She is feeling better, back to baseline. WBC is slightly elevated, likely steroid effect. Patient doesn't have symptoms supporting presence of pneumonia or an active infection. Ongoing exacerbations and recurrent pneumonia most likely due to GERD and silent aspiration. Unless drastic weight reduction and control of GERD, unlikely to change respiratory status. Patient is still on Clindamycin. No changes were made in her home meds regimen. Discharge diagnosis: Exacerbation of COPD, acute bronchitis Secondary discharge diagnosis: Recurrent pneumonia Chronic respiratory failure Obesity hypoventilation syndrome morbid obesity VIMAL GERD Likely silent aspiration DM type 2 Cushingnoid appearance Reason for admission: increased SOB - Time Spent with Patient Total time spent providing and/or coordinating discharge services: Medical - DS: Exam - Constitutional Vitals: Vital Signs Temp Pulse Pulse Resp BP BP Pulse Ox 01/03/18 08:18 100 H 20 92 01/03/18 08:17 100 H 20 01/03/18 08:00 98.4 F 24 L 87 H 118/72 87 L 01/03/18 07:11 87 L 01/03/18 04:00 98.4 F 75 24 H 135/74 87 L 01/03/18 00:00 96 H 21 90 01/02/18 23:15 98.3 F 98 H 24 H 113/57 88 L 01/02/18 19:30 80 22 92 01/02/18 19:29 92 01/02/18 19:11 97.8 F 96 H 24 H 170/85 90 01/02/18 18:51 97.0 F 83 16 114/49 91 01/02/18 17:43 96 H 90 01/02/18 17:36 96 H 90 01/02/18 17:04 93 H 91 01/02/18 14:30 94 H 24 H 01/02/18 13:27 97.8 F 108 H 16 170/85 84 L Intake and Output 01/02/18 01/03/18 01/03/18 21:59 05:59 13:59 Intake Total 150 / 150 840 / 840 Output Total 200 / 200 Balance 150 / 150 640 / 640 Intake: Oral 150 / 150 840 / 840 Output: Void Amount 200 / 200 Other: Meal Egg salad sandwich Lunch Percent of Meal Consumed 100% 100% Feeding Ability Independent # Voids 1 # Bowel Movements 1 Weight 236 lb 8 oz Medical - DS: Data Labs on day of discharge: Labs from last 24 hours 01/03/18 01/03/18 01/03/18 04:00 04:00 04:00 WBC 15.8 H RBC 5.56 H Hgb 10.9 L Hct 37.2 MCV 66.9 L MCH 19.6 L MCHC 29.4 L RDW 24.5 H Plt Count 190 MPV 8.9 Total Counted 100 Seg Neutrophils % 80 H Band Neutrophils % 4 Lymphocytes % 10 L Monocytes % (Manual) 6 Eosinophils % (Manual) Platelet Estimate Normal RBC Morphology Abnormal Polychromasia Occ A Hypochromasia 2+ A Basophilic Stippling Anisocytosis 2+ A Microcytosis 3+ A VBG Lactic Acid Sodium 141 Potassium 4.7 Chloride 97 Carbon Dioxide 32 H Anion Gap 12.0 BUN 19 Creatinine 0.5 L GFR Calculation 113 Glucose 107 H Hemoglobin A1c 4.9 Estim Average Glucose 94 Uric Acid 6.7 Calcium 9.6 Phosphorus 3.6 Magnesium 1.9 Total Bilirubin < 0.2 Direct Bilirubin < 0.2 GGT 24 AST 12 ALT 13 Alkaline Phosphatase 58 Lactate Dehydrogenase 175 Total Protein 7.2 Albumin 3.9 Globulin 3.3 Albumin/Globulin Ratio 1.2 Triglycerides 214 H Urine Color Urine Appearance Urine pH Ur Specific [place] Urine Protein Urine Glucose (UA) Urine Ketones Urine Occult Blood Urine Nitrate Urine Bilirubin Urine Urobilinogen Ur Leukocyte Esterase Urine RBC Urine WBC Ur Squamous Epith Cells Urine Bacteria Hyaline Casts Urine Mucus Ur Culture Indicated? 01/02/18 01/02/18 01/02/18 16:58 14:19 14:19 WBC 15.4 H RBC 5.60 H Hgb 11.1 L Hct 37.4 MCV 66.7 L MCH 19.9 L MCHC 29.8 L RDW 25.0 H Plt Count 194 MPV 8.6 Total Counted 100 Seg Neutrophils % 83 H Band Neutrophils % Not Reportable Lymphocytes % 9 L Monocytes % (Manual) 6 Eosinophils % (Manual) 2 Platelet Estimate Normal RBC Morphology Abnorm A Polychromasia Hypochromasia 2+ A Basophilic Stippling 1+ A Anisocytosis 2+ A Microcytosis 3+ A VBG Lactic Acid 1.6 Sodium Potassium Chloride Carbon Dioxide Anion Gap BUN Creatinine GFR Calculation Glucose Hemoglobin A1c Estim Average Glucose Uric Acid Calcium Phosphorus Magnesium Total Bilirubin Direct Bilirubin GGT AST ALT Alkaline Phosphatase Lactate Dehydrogenase Total Protein Albumin Globulin Albumin/Globulin Ratio Triglycerides Urine Color Yellow Urine Appearance Clear Urine pH 5.0 Ur Specific [place] 1.012 Urine Protein Neg Urine Glucose (UA) Negative Urine Ketones Neg Urine Occult Blood Neg Urine Nitrate Neg Urine Bilirubin Neg Urine Urobilinogen Neg Ur Leukocyte Esterase 75 A Urine RBC 1 Urine WBC 8 H Ur Squamous Epith Cells 1 Urine Bacteria 0 Hyaline Casts 1 Urine Mucus Few Ur Culture Indicated? Yes 01/02/18 14:18 WBC RBC Hgb Hct MCV MCH MCHC RDW Plt Count MPV Total Counted Seg Neutrophils % Band Neutrophils % Lymphocytes % Monocytes % (Manual) Eosinophils % (Manual) Platelet Estimate RBC Morphology Polychromasia Hypochromasia Basophilic Stippling Anisocytosis Microcytosis VBG Lactic Acid Sodium 139 Potassium 4.5 Chloride 93 L Carbon Dioxide 33 H Anion Gap 13.0 BUN 12 Creatinine 0.7 GFR Calculation 101 Glucose 108 H Hemoglobin A1c Estim Average Glucose Uric Acid Calcium 9.5 Phosphorus Magnesium Total Bilirubin < 0.2 Direct Bilirubin GGT AST 15 ALT 16 Alkaline Phosphatase 67 Lactate Dehydrogenase Total Protein 7.3 Albumin 3.9 Globulin 3.4 Albumin/Globulin Ratio 1.1 Triglycerides Urine Color Urine Appearance Urine pH Ur Specific [place] Urine Protein Urine Glucose (UA) Urine Ketones Urine Occult Blood Urine Nitrate Urine Bilirubin Urine Urobilinogen Ur Leukocyte Esterase Urine RBC Urine WBC Ur Squamous Epith Cells Urine Bacteria Hyaline Casts Urine Mucus Ur Culture Indicated? Preliminary micro results at discharge 01/02/18 16:28 Urine Culture - Preliminary Urine - Clean Void [facility] - DS: A/P - Patient/Caregiver Discharge Instructions Activity: increase activity as tolerated Diet: Consistent Carbohydrate - Follow up Plan Follow up with: Tristen Dupree MD [Primary Care Provider] - Lloyd Romero MD [Physician] - Disposition: Home, Self-Care Prognosis: Fair Rehab Potential: Fair Overall status at discharge: patient is back to baseline Medical - DS: Qual - VTE Deep Vein Thrombosis/Pulmonary Embolism Present on Admission: No
[2018-01-03] MEDS: ERTAPENEM 1 GM in 0.9 % SODIUM CHLORIDE 50 ML IV SCH (15:07)
[2018-01-03] MEDS ORDERED: MONTELUKAST 10 MG TABLET PO SCH (21:00)
[2018-01-03] MEDS ORDERED: ARIPIPRAZOLE 5 MG TABLET PO SCH (21:00)
[2018-01-03] MEDS ORDERED: MIRTAZAPINE 15 MG TABLET PO SCH (21:00)
[2018-01-04] MEDS ORDERED: SERTRALINE 50 MG TABLET PO SCH (09:00)
[2018-01-04] MEDS ORDERED: FOLIC ACID 1 MG TABLET PO SCH (09:00)
[2018-01-04] MEDS ORDERED: APIXABAN 5 MG TABLET PO SCH (09:00)
[2018-01-08] MEDS ORDERED: ALENDRONATE SODIUM 70 MG TABLET PO SCH (07:30)
== END 2018-01-03 15:15 | disposition home or self-care (01) ==
LOC: ED 13:25 → MEDSUR 18:50 → INTOOBSV 18:51 → MEDSUR 18:51
PROVIDERS: ADMIT Specialist; ATTEND Specialist